=== PATIENT | male | born 1950 | race Caucasian/White ===

== ENCOUNTER 2023-09-20 22:28 | Inpatient (IN) | payer MEDICARE, MEDICAID, SELFPAY ==
[2023-09-20] VITALS (15 sets, daily range): BP systolic 134–164; BP diastolic 65–94; PULSE 62–116; RESP 8–44; TEMP 36.4; O2SAT 93–98
--- NOTE | ~2023-09-20 | CT_ITS ---
Clinical Indication: Dyspnea CT Scan of the Chest with Contrast: Technique: Contiguous sections were acquired throughout the chest after intravenous administration of 100 cc of Omnipaque 350. Dose reduction technique was used on this scan by utilizing automated expos ure control and iterative reconstruction technique. The dose-length product (DLP) was 903.80 mGy-cm. Findings: There is no evidence of any significant mediastinal, hilar or axillary lymphadenopathy. There is no f illing defect in the pulmonary arterial tree to suggest pulmonary embolus. There is no evidence of ao rtic dissection or aneurysm. No pericardial effusion. Moderate bilateral pleural effusions are present. There are numerous calcified granulomas. Images through the upper abdomen reveal no abnormalities. Impression: No evidence of pulmonary embolus, aortic dissection, or aortic aneurysm. Moderate bilateral pleural effusions. Reviewed, dictated and finalized at [facility]. [employer] Impression: No evidence of pulmonary embolus, aortic dissection, or aortic aneurysm. Moderate bilateral pleural effusions.
--- NOTE | ~2023-09-20 | XR_ITS ---
Portable chest x-ray Comparison: None Clinical History: Shortness of breath Findings: There is central congestive change and suspected minimal pulmonary edema. Numerous calcifi ed granulomas are present. Cardiomediastinal silhouette is stable. Vascular stent present in the lef t axillary to subclavian region. Bones and soft tissues are otherwise unremarkable. Impression: Probable central congestive change and minimal pulmonary edema. Numerous calcified granulomas. Reviewed, dictated and finalized at location . ER MEAT Impression: Probable central congestive change and minimal pulmonary edema. Numerous calcified granulomas.
--- NOTE | ~2023-09-20 | XR_ITS ---
Portable chest x-ray Comparison: 09/20/2023 Clinical History: Shortness of breath Findings: There is central congestive change. Numerous small calcified granulomas are present. Card iomediastinal silhouette is stable. Bones and soft tissues are unremarkable. Impression: Central congestive change. Prior granulomatous disease. Reviewed, dictated and finalized at [facility]. [employer] Impression: Central congestive change. Prior granulomatous disease.
--- NOTE | 2023-09-20 22:41 | ECG_ITS ---
Measurements Intervals [place] Rate: 63 P: 34 RI: 191 QRS: -4 QRSD: 162 T: 32 QT: 466 QTc: 477 Interpretive Statements SINUS RHYTHM VENTRICULAR BIGEMINY RIGHT BUNDLE BRANCH BLOCK ABNORMAL ECG NO PREVIOUS ECG AVAILABLE FOR COMPARISON Electronically Signed On 09-21-2023 6:05:11 MATH COACH by Imer Scanlon D.O.
--- NOTE | 2023-09-20 23:42 | ED.GENADULT ---
HPI - General Adult General Chief complaint: Shortness of Breath/Dyspnea Stated complaint: sob, abnormal cxr Time Seen by Provider: 09/20/23 22:42 History of Present Illness HPI narrative: This is a 73-year-old male with history of end-stage renal disease on HD mwf, hypertension, diabetes, presenting for difficulty breathing. Patient says he has had shortness breath for 2-3 days. He has had a productive cough. It got significantly worse today and his senior living called EMS. Patient denies fever chills chest pain abdominal pain or urinary symptoms. He has had diarrhea for 2-3 months. Last dialysis was Thursday. Related Data Allergies Allergy/AdvReac Type Severity Reaction Status Date / Time azithromycin Allergy Unknown Verified 09/20/23 23:45 Penicillins Allergy Unknown Verified 09/20/23 23:45 [facility] Past Medical History Medical History (Updated 09/21/23 @ 06:38 by Sergo Carney MD) Diabetes ESRD (end stage renal disease) Hypertension Exam Narrative: APPEARANCE: No apparent distress. Head: atraumatic. EYES: EOMI, NOSE: Atraumatic NECK: Trachea midline RESPIRATORY: Tachypneic, coarse breath sounds bilaterally CARDIOVASCULAR: RRR, left calf swelling ABDOMINAL: Non-distended, soft nontender MUSCULOSKELETAl: No obvious deformities NEURO: Alert. Moving 4/4 extremities SKIN:: Warm, dry. Normal color PSYCHIATRIC: Normal affect Course Vital Signs Vital signs: Vital Signs Temperature 97.6 F 09/20/23 22:27 Pulse Rate 62 09/20/23 22:27 Respiratory Rate 25 H 09/20/23 22:27 Blood Pressure 134/73 09/20/23 22:27 Pulse Oximetry 93 09/20/23 22:27 Oxygen Delivery Room Air 09/20/23 22:27 Temperature 97.6 F 09/20/23 22:27 Pulse Rate 75 09/21/23 03:33 Respiratory Rate 23 H 09/21/23 02:43 Blood Pressure 131/62 09/21/23 04:46 Pulse Oximetry 100 09/21/23 02:43 Oxygen Delivery Nasal Cannula 09/21/23 01:30 Oxygen Flow Rate 4 09/21/23 01:30 Medical Decision Making MDM Narrative Medical decision making narrative: -Course: 73-year-old male with multiple comorbidities presenting with 3 days of shortness of breath/productive cough. Full sepsis workup ordered. CT was significantly delayed overnight as stat read did not return any scans. Patient started on ceftriaxone and Zithromax to cover for pneumonia. When they CT finally resulted showed no evidence of PE but showed pulmonary edema and diffuse granulomas. Potassium elevated. Given medical treatment. Patient is likely fluid overloaded and will need dialysis. Patient be admitted to the hospital for further management -DDX includes but is not limited to: Pneumonia, fluid overload,, sepsis, viral syndrome, hyperkalemia, CHF, PE -Co-morbidities complicating care: Hypertension, diabetes, end-stage renal disease requiring hemodialysis -Social determinants of health: assisted resident -External Chart Review: [place] paperwork -Independent interpretation of studies: Hemoglobin 10.1. No baseline compared D-dimer elevated 1.31. CT showed no evidence of pulmonary embolism. Potassium 5.9, creatinine 11.2 and BUN of 73. Potassium managed medically. Patient will require dialysis. Urine not indicative infection. Viral swabs negative Independent EKG interpretation: Rhythm bigeminy Rate [63], [place] -[normal], [place] -[normal], QRS right bundle-branch block], QTC [normal], T waves -[negative for concerning inversions], ST Segments - [Negative for concerning elevations] Final interpretations: Bigeminy with RBBB CT PE: No evidence of pulmonary embolus, aortic dissection, or aortic aneurysm. Moderate bilateral pleural effusions. Chest x-ray showed multiple granulomas and congestive changes. -Discussion of Management/Consultants: Emery - Hospitalist -Interventions: Ceftriaxone, doxycycline, Lokelma, insulin, dextrose, bicarb, calcium -Shared decision making / Disposition:admitted. Vital Signs Vital Signs: Vital Signs Temp
[2023-09-20 23:46] LABS: Basophils Absolute Auto 0.1 K/mm3 (0.0-0.1); Eosinophils Absolute Auto 0.5 K/mm3 (0-0.3); Eosinophils Percent Auto 6.4 % (0-4.4); Hematocrit 32.4 % (42.0-52.0); Hemoglobin 10.1 g/dL (14.0-18.0); Immature Granulocyte Absolute 0.01 K/mm3 (0.00-0.031); Immature Granulocyte Percent A 0.1 % (0-0.5); Lymphocytes Absolute Auto 2.07 K/mm3 (0.9-3.2); Lymphocytes Percent Auto 28.8 % (18.3-44.2); Mean Corpuscular HGB Conc 31.2 g/dl (32-36); Mean Corpuscular Hemoglobin 29.9 pg (26-34); Mean Corpuscular Volume 95.9 fl (80-100); Mean Platelet Volume 11.4 fl (7.4-10.4); Monocytes Absolute Auto 0.7 K/mm3 (0.1-0.6); Monocytes Percent Auto 9.9 % (2.6-8.5); Neutrophils Absolute Auto 3.9 K/mm3 (1.3-6.7); Neutrophils Percent Auto 53.8 % (45.5-73.1); Platelet Count Result 188 k/mm3 (150-375); Red Blood Count 3.38 M/mm3 (4.6-6.20); White Blood Count 7.2 K/mm3 (4.5-10.0)
[2023-09-20 23:59] LABS: INR 1.1; Prothrombin Time 14.8 Seconds (11.1-14.7)
[2023-09-21] VITALS (46 sets, daily range): BP systolic 119–162; BP diastolic 50–89; PULSE 56–104; RESP 12–29; TEMP 36.3–37; O2SAT 91–100; BMI 39.2
[2023-09-21] LABS: Partial Thromboplastin Time 32.6 SECONDS (22.3-36.8)
[2023-09-21 00:04] LABS: D Dimer 1.31 ug/mL (<0.48)
[2023-09-21 00:07] LABS: NT Pro B Type Natriuretic Pept > 30000 pg/mL (19.9-100); Troponin I 0.024 ng/mL (0.000-0.034)
[2023-09-21 00:22] LABS: Influenza A QL RT-PCR Negative (Negative); Influenza B QL RT-PCR Negative (Negative); RSV RNA, RT-PCR Negative (Negative); SARS-CoV-2 RNA PCR Negative (Negative)
[2023-09-21] MEDS: DOXYCYCLINE 100 MG/NS 100 ML 100 MG/100 ML BAG IVPB ×2 (01:27→18:36)
--- NOTE | 2023-09-21 01:29 | PC.NURSE ---
while sleeping pt dropped to 82% on RA. with provider orders 4L nc was applied and pt O2 was 94%
[2023-09-21 01:31] LABS: Alanine Aminotransferase 11 U/L (6-50); Albumin Level 3.5 g/dL (3.5-5.1); Alkaline Phosphatase 71 U/L (38-126); Anion Gap 13 mmol/L (8-16); Aspartate Amino Transferase 15 U/L (17-59); Bilirubin,Total 0.6 mg/dL (0.2-1.3); Blood Urea Nitrogen 73 mg/dL (9-20); Calcium 9.2 mg/dL (8.4-10.2); Carbon Dioxide 29 mmol/L (22-30); Chloride 99 mmol/L (98-107); Estimated CRCL calculation 8 ml/min; Estimated Glomerular Filt Rate 4; Glucose 87 mg/dL (65-110); Magnesium 2.8 mg/dL (1.6-2.3); Phosphorus 6.8 mg/dL (2.5-4.5); Potassium 5.9 mmol/L (3.4-5.0); Sodium 141 mmol/L (137-145)
[2023-09-21 01:42] LABS: Appearance Urine Clear (Clear); Bilirubin Urine Negative (Negative); Blood Urine 2+ (Negative); Color Urine Yellow (Yellow); Glucose Urine UA Trace mg/dL (Negative); Ketones Urine Negative (Negative); Leukocyte Esterase Ur Negative LEU/UL (Negative); Nitrate Urine Negative (Negative); Protein Urine 2+ mg/dL (Negative); Specific Grav Ur 1.009 (1.001-1.035); Urobilinogen Urine 0.2 mg/dL (<2.0); pH Urine 8.5 (5.0-9.0)
[2023-09-21 01:43] LABS: Add Urine Microscopic? YES
[2023-09-21 01:46] LABS: Troponin I 0.021 ng/mL (0.000-0.034)
[2023-09-21] MEDS: DEXTROSE 50% 25 GM/50 ML SYRINGE IV PUSH (01:47)
[2023-09-21] MEDS: INSULIN HUMAN REGULAR (*BKC) 100 UNITS/ML 10 UNITS IV PUSH (01:47)
[2023-09-21] MEDS: CALCIUM GLUCONATE 1,000 MG/10 ML VIAL 1000 MG IV PUSH (01:47)
[2023-09-21] MEDS: SODIUM BICARBONATE 8.4% 50 MEQ/50 ML SYRINGE IV PUSH (01:47)
[2023-09-21] MEDS: SODIUM ZIRCONIUM CYCLOSILICATE 10 GM POWD.PACK PO (01:47)
--- NOTE | 2023-09-21 03:05 | PC.NURSE ---
this rn assumed care of patient. this rn took patient report from nolvia putnam.
--- NOTE | 2023-09-21 03:06 | PC.NURSE ---
care and report given to VIKTORIYA Rice. all questions answered.
[2023-09-21 07:25] LABS: Procalcitonin 0.2 ng/mL
--- NOTE | 2023-09-21 08:38 | PM.IMHP ---
H&P: HPI History of Present Illness Date/Time: 09/21/23 08:38 Chief Complaint: Difficulty breathing Narrative: [age]-year-old old male with history of end-stage renal disease on hemodialysis Thursday hypertension diabetes presented with difficulty breathing for the past 2-3 days. Associated productive cough. EMS was called to his longterm. No fever chills chest pain abdominal pain or urinary symptoms. He missed his dialysis appointment this Thursday. he reports diarrhea for past 2-3 months. On ED evaluation his vitals were stable laboratory evaluation showed normal WBC hemoglobin 10.1 indicating chronic anemia potassium was 5.9 creatinine of 11.2 blood sugar was 87 PT and a PTT was within normal limit D-dimer came back elevated at 1.31 lactic acid was normal. BNP was more than 30,000 troponin was negative at 0.024 SARs COVID RSV influenza a and B were negative. UA was negative. CT showed no evidence of PE but showed moderate bilateral pleural effusions. Chest x-ray showed multiple granulomas and congestive changes.. EKG with bigeminy acute ST-T changes right bundle-branch block. Patient was started on ceftriaxone duct doxycycline. Lokelma was given along with insulin dextrose bicarb and calcium for hyperkalemia. Nephrology will be consulted for inpatient hemodialysis. He is admitted in this setting for further treatment Review of Systems Review of Systems: - CONSTITUTIONAL: Denies weight loss, fever and chills. - HEENT: Denies changes in vision and hearing - RESPIRATORY: See HPI - CV: Denies palpitations and CP. - GI: Denies abdominal pain, nausea, vomiting and diarrhea. - : Denies dysuria and urinary frequency. - MSK: Denies myalgia and joint pain. - SKIN: Denies rash and pruritus. - NEUROLOGICAL: Denies headache and syncope. - PSYCHIATRIC: Denies recent changes in mood. Denies anxiety and depression. [facility] Past Medical History Medical History (Updated 09/21/23 @ 06:38 by Sergo Carney MD) Diabetes ESRD (end stage renal disease) Hypertension Meds Home Medications and Allergies Allergies Allergy/AdvReac Type Severity Reaction Status Date / Time azithromycin Allergy Unknown Verified 09/20/23 23:45 Penicillins Allergy Unknown Verified 09/20/23 23:45 Vital Signs Vital Signs - 24 hr 09/20/23 22:27 09/20/23 22:27 09/20/23 22:40 Temperature 97.6 F Pulse Rate 62 64 Respiratory Rate 25 H Blood Pressure 134/73 Pulse Oximetry 93 95 Oxygen Delivery Room Air Room Air Oxygen Flow Rate 09/20/23 22:34 09/20/23 22:35 09/20/23 22:45 Temperature Pulse Rate 71 69 66 Respiratory Rate 20 16 31 H Blood Pressure 134/73 Pulse Oximetry 94 94 Oxygen Delivery Oxygen Flow Rate 09/20/23 22:46 09/20/23 23:00 09/20/23 23:01 Temperature Pulse Rate 66 66 62 Respiratory Rate 25 H 17 16 Blood Pressure 143/80 H 164/89 H Pulse Oximetry 96 Oxygen Delivery Oxygen Flow Rate 09/20/23 23:15 09/20/23 23:18 09/20/23 23:30 Temperature Pulse Rate 67 116 H 64 Respiratory Rate 27 H 8 L 44 H Blood Pressure 147/94 H Pulse Oximetry 96 Oxygen Delivery Oxygen Flow Rate 09/20/23 23:38 09/20/23 23:45 09/20/23 23:47 Temperature Pulse Rate 63 63 64 Respiratory Rate 14 24 H 25 H Blood Pressure 159/67 H 153/65 H Pulse Oximetry 93 97 Oxygen Delivery Oxygen Flow Rate 09/21/23 01:30 09/20/23 23:48 09/21/23 00:00 Temperature Pulse Rate 63 Respiratory Rate 17 29 H Blood Pressure Pulse Oximetry 94 98 92 Oxygen Delivery Nasal Cannula Oxygen Flow Rate 4 09/21/23 00:14 09/21/23 00:15 09/21/23 00:17 Temperature Pulse Rate 62 64 65 Respiratory Rate 21 H 28 H 27 H Blood Pressure 162/68 H 147/69 H Pulse Oximetry 94 91 96 Oxygen Delivery Oxygen Flow Rate 09/21/23 00:30 09/21/23 00:31 09/21/23 01:07 Temperature Pulse Rate 66 104 H 64 Respiratory Rate 23 H 23 H 18 Blood Pressure
[2023-09-21 09:08] LABS: Anion Gap 12 mmol/L (8-16); Blood Urea Nitrogen 76 mg/dL (9-20); Calcium 9.6 mg/dL (8.4-10.2); Carbon Dioxide 29 mmol/L (22-30); Chloride 99 mmol/L (98-107); Estimated CRCL calculation 8 ml/min; Estimated Glomerular Filt Rate 4; Glucose 71 mg/dL (65-110); Potassium 6.1 mmol/L (3.4-5.0); Sodium 140 mmol/L (137-145)
[2023-09-21] MEDS: HEPARIN SODIUM 5,000 UNITS/ML VIAL 5000 UNITS SUB-Q ×2 (10:12→20:42)
[2023-09-21 11:05] LABS: Hepatitis B Surface Antigen Negative (Negative)
[2023-09-21 11:17] LABS: Hemoglobin A1C 4.9 % (<5.7)
[2023-09-21 11:35] LABS: Hepatitis B Surface Anti Res Positive
--- NOTE | 2023-09-21 14:02 | PC.NURSE ---
Dialysis called stating they are ready for patient.
--- NOTE | 2023-09-21 14:20 | PC.NURSE ---
Pt taken to dialysis
--- NOTE | 2023-09-21 16:23 | PM.CNNEP ---
Assessment and Plan Assessment and plan (1) End stage renal disease: Code(s): N18.6 - End stage renal disease Status: Chronic Assessment and Plan: HD today continue Thu/Thu/Thursday dialysis schedule follow electrolytes, volume status, and clearance (2) Hyperkalemia: Code(s): E87.5 - Hyperkalemia Status: Acute Assessment and Plan: presumably precipitated by missed dialysis treatment last week s/p medical management further correction with dialysis (3) Shortness of breath: Code(s): R06.02 - Shortness of breath Status: Acute Assessment and Plan: due to bronchitis with possible early pneumonia and fluid retention supplemental oxygen as needed on antibiotics follow culture data fluid removal with HD as tolerated (4) Fluid overload: Code(s): E87.70 - Fluid overload, unspecified Status: Acute Assessment and Plan: as noted by imaging studies on admission fluid removal/ultrafiltration with dialysis to compensate follow respiratory status (5) Hypertension: Code(s): I10 - Essential (primary) hypertension Status: Chronic Assessment and Plan: reasonable control at time resume home medications follow trend of hemodynamics (6) Diabetes: Code(s): E11.9 - Type 2 diabetes mellitus without complications Status: Chronic Assessment and Plan: follow accu-cheks glycemic control per hospitalists I will continue follow patient with you while he remains hospitalized make further recommendations as needed. Thank you for allowing me to participate in care of this patient. History of Present Illness Reason for Consult Consult date: 09/21/23 Reason for consult: end stage renal disease Chief Complaint Chief complaint: Fluid Overload History of Present Illness Narrative: The patient is a 73-year-old male with a past medical history as outlined below who presented to [facility] Emergency Room with complaints of shortness of breath. The patient has been currently residing in nursing facility for rehabilitation purposes. He reports that he has been having some difficulty with breathing for the past 2-3 days. His breathing difficulty these have been associated with productive cough as well. He denies any other subjective symptoms with regard to fevers, chills, chest pain, abdominal pain, or urinary symptoms. He does admit that he missed his dialysis treatment last Thursday so he has not had dialysis since last Thursday. Given his symptoms, EMS was called to his nurses in facility and he was subsequently transferred to [facility] Emergency Room for further assessment Workup and evaluation emergency room demonstrated the patient be hemodynamically stable. Routine blood test demonstrated normal white blood cell count anemia consistent with his known history of end-stage renal disease, and a chemistry panel with laboratory findings consistent with his known dialysis status. Of note was that his potassium was 5.9. His BNP was greater than 30,000 and his initial troponin was negative and he was found to be negative with regard to RSV, influenza, and COVID 19 testing his urinalysis was unremarkable but he did have a elevated D-dimer. He subsequently had a CTA of his chest which showed no evidence of a pulmonary embolism but moderate bilateral pleural effusions and findings consistent with congestive heart failure. His chest x-ray also demonstrated congestive heart failure changes in association with multiple granulomas. EKG was unremarkable for ischemic changes. He was given medical management for his hyperkalemia and after appropriate cultures were obtained, he was started on antibiotics on the assumption of early pneumonia/bronchitis. He was subsequently admitted to the hospital for further evaluation therapy Since his admission, his respiratory status has been relatively stable but his repeat
[2023-09-21 18:39] LABS: Glucose Point of Care 105 mg/dl (65-105)
[2023-09-21 20:59] LABS: Glucose Point of Care 135 mg/dl (65-105)
[2023-09-22] VITALS (10 sets, daily range): BP systolic 130–148; BP diastolic 57–73; PULSE 55–67; RESP 13–14; TEMP 36.3–36.5; O2SAT 90–95
[2023-09-22] MEDS: DOXYCYCLINE 100 MG/NS 100 ML 100 MG/100 ML BAG IVPB ×2 (05:34→18:22)
[2023-09-22 05:39] LABS: Basophils Absolute Auto 0.1 K/mm3 (0.0-0.1); Basophils Percent Auto 1.5 % (0.2-1.2); Eosinophils Absolute Auto 0.4 K/mm3 (0-0.3); Eosinophils Percent Auto 8.4 % (0-4.4); Hematocrit 30.5 % (42.0-52.0); Hemoglobin 9.1 g/dL (14.0-18.0); Immature Granulocyte Absolute 0.01 K/mm3 (0.00-0.031); Immature Granulocyte Percent A 0.2 % (0-0.5); Lymphocytes Absolute Auto 1.35 K/mm3 (0.9-3.2); Lymphocytes Percent Auto 29.2 % (18.3-44.2); Mean Corpuscular HGB Conc 29.8 g/dl (32-36); Mean Corpuscular Volume 100.7 fl (80-100); Mean Platelet Volume 11.2 fl (7.4-10.4); Monocytes Absolute Auto 0.6 K/mm3 (0.1-0.6); Monocytes Percent Auto 12.1 % (2.6-8.5); Neutrophils Absolute Auto 2.2 K/mm3 (1.3-6.7); Neutrophils Percent Auto 48.6 % (45.5-73.1); Platelet Count Result 159 k/mm3 (150-375); Red Blood Count 3.03 M/mm3 (4.6-6.20); Red Cell Distribution Width 17.7 % (11.5-14.5); White Blood Count 4.6 K/mm3 (4.5-10.0)
[2023-09-22 06:22] LABS: Alanine Aminotransferase 10 U/L (6-50); Albumin Level 3.3 g/dL (3.5-5.1); Alkaline Phosphatase 68 U/L (38-126); Anion Gap 8 mmol/L (8-16); Aspartate Amino Transferase 15 U/L (17-59); Bilirubin,Total 0.4 mg/dL (0.2-1.3); Blood Urea Nitrogen 42 mg/dL (9-20); Calcium 9.3 mg/dL (8.4-10.2); Carbon Dioxide 30 mmol/L (22-30); Chloride 99 mmol/L (98-107); Estimated CRCL calculation 11 ml/min; Estimated Glomerular Filt Rate 7; Glucose 83 mg/dL (65-110); Magnesium 2.5 mg/dL (1.6-2.3); Potassium 5.1 mmol/L (3.4-5.0); Sodium 137 mmol/L (137-145)
[2023-09-22 06:45] LABS: Hypochromasia 2+ (NORMAL); Ovalocytes 2+ (NORMAL); Platelet Estimate Adequate (Adequate); Schistocytes None Seen (NORMAL)
[2023-09-22 08:20] LABS: Glucose Point of Care 88 mg/dl (65-105)
[2023-09-22] MEDS: HEPARIN SODIUM 5,000 UNITS/ML VIAL 5000 UNITS SUB-Q ×2 (09:21→21:33)
--- NOTE | 2023-09-22 10:45 | PM.PNNEP ---
Progress Note: A&P Assessment and Plan (1) End stage renal disease: Code(s): N18.6 - End stage renal disease Status: Chronic Assessment and Plan: HD tomorrow continue Thu/Thu/Thursday dialysis schedule follow electrolytes, volume status, and clearance (2) Hyperkalemia: Code(s): E87.5 - Hyperkalemia Status: Acute Assessment and Plan: resolved presumably precipitated by missed dialysis treatment last week s/p medical management further correction achieved with dialysis (3) Shortness of breath: Code(s): R06.02 - Shortness of breath Status: Acute Assessment and Plan: due to bronchitis with possible early pneumonia and fluid retention supplemental oxygen as needed on antibiotics follow culture data fluid removal with HD as tolerated (4) Fluid overload: Code(s): E87.70 - Fluid overload, unspecified Status: Acute Assessment and Plan: as noted by imaging studies on admission fluid removal/ultrafiltration with dialysis to compensate follow respiratory status (5) Hypertension: Code(s): I10 - Essential (primary) hypertension Status: Chronic Assessment and Plan: reasonable control at time resume home medications follow trend of hemodynamics (6) Diabetes: Code(s): E11.9 - Type 2 diabetes mellitus without complications Status: Chronic Assessment and Plan: follow accu-cheks glycemic control per hospitalists Will continue to follow. Subjective Date/time seen: 09/22/23 10:45 Interval history: Follow-up for end stage renal disease on hemodialysis. Tolerated dialysis treatment yesterday afternoon without any issues or problems; still with some mild shortness of breath but has significantly improved since admission; no apparent distress noted; no other issues/events overnight or earlier this morning. Exam Narrative: General: elderly but WD/WN male in NAD Heart: normal S1 and S2; no rub Lungs: coarse breath sounds Abdomen: soft, nontender, nondistended, positive bowel sounds Extremities: no cyanosis or clubbing; no edema Skin: warm and dry Objective Data Vital Signs Vital Signs: Vital Signs Temp Pulse Resp BP Pulse Ox O2 Del Method O2 Flow Rate 09/22/23 10:00 61 09/22/23 08:00 67 09/22/23 09:21 95 Nasal Cannula 2 09/22/23 04:00 64 09/22/23 05:24 97.3 F L 65 13 130/57 L 90 09/22/23 00:00 55 L 09/21/23 20:00 65 09/21/23 21:22 98.0 F 72 12 137/64 91 Intake/Output Intake/Output: Intake & Output 09/19/23 09/20/23 09/21/23 09/22/23 23:59 23:59 23:59 23:59 Intake Total 300 1450 Output Total 3650 Balance -3350 1450 Meds/Results Medications: Active Medications Generic Name Dose Route Start Last Admin Trade Name [place] PRN Reason Stop Dose Admin Acetaminophen 650 mg 09/22/23 14:10 09/22/23 14:35 Acetaminophen 325 Mg Tablet PO 650 mg Q4H PRN Administration mild pain or fever Dextrose 12.5 gm 09/21/23 08:43 Dextrose 50% 25 Gm/50 Ml Syringe IV PUSH PRN PRN Hypoglycemia Protocol Ergocalciferol 50,000 units 09/27/23 09:00 Ergocalciferol 50,000 Units Capsule PO [place]@0900 TARA Glucagon 1 mg 09/21/23 08:43 Glucagon For Inj 1 Mg Vial IM PRN PRN Hypoglycemia Protocol Glucose 15 gm 09/21/23 08:43 Glucose Oral Gel 15 Gm Of Glucse In 37.5 Gm Tube PO PRN PRN Hypoglycemia Protocol Guaifenesin/Dextromethorphan 10 ml 09/22/23 14:03 09/22/23 14:36 Guaifenesin/Dextromethorphan 10 Ml Udc PO 10 ml Q6-8H PRN Administration Cough Heparin Sodium (Porcine) 5,000 units 09/21/23 09:00 09/22/23 09:21 Heparin Sodium 5,000 Units/Ml Vial SUB-Q 5,000 units Q12HR TARA Administration Ceftriaxone Sodium 1 gm in 50 mls @ 100 mls/hr 09/21/23 21:00 09/21/23 21:11 Rocephin 1 Gm/Ns 50
--- NOTE | 2023-09-22 10:45 | P.PNNP_ITS ---
Progress Note: A&P Assessment and Plan (1) End stage renal disease: Code(s): N18.6 - End stage renal disease Status: Chronic Assessment and Plan: * HD tomorrow * continue Thu/Thu/Thursday dialysis schedule * follow electrolytes, volume status, and clearance (2) Hyperkalemia: Code(s): E87.5 - Hyperkalemia Status: Acute Assessment and Plan: * resolved * presumably precipitated by missed dialysis treatment last week * s/p medical management * further correction achieved with dialysis (3) Shortness of breath: Code(s): R06.02 - Shortness of breath Status: Acute Assessment and Plan: * due to bronchitis with possible early pneumonia and fluid retention * supplemental oxygen as needed * on antibiotics * follow culture data * fluid removal with HD as tolerated (4) Fluid overload: Code(s): E87.70 - Fluid overload, unspecified Status: Acute Assessment and Plan: * as noted by imaging studies on admission * fluid removal/ultrafiltration with dialysis to compensate * follow respiratory status (5) Hypertension: Code(s): I10 - Essential (primary) hypertension Status: Chronic Assessment and Plan: * reasonable control at time * resume home medications * follow trend of hemodynamics (6) Diabetes: Code(s): E11.9 - Type 2 diabetes mellitus without complications Status: Chronic Assessment and Plan: * follow accu-cheks * glycemic control per hospitalists Will continue to follow. Subjective Date/time seen: 09/22/23 10:45 Interval history: Follow-up for end stage renal disease on hemodialysis. Tolerated dialysis treatment yesterday afternoon without any issues or problems; still with some mild shortness of breath but has significantly improved since admission; no apparent distress noted; no other issues/events overnight or earlier this morning. Exam Narrative: General: elderly but WD/WN male in NAD Heart: normal S1 and S2; no rub Lungs: coarse breath sounds Abdomen: soft, nontender, nondistended, positive bowel sounds Extremities: no cyanosis or clubbing; no edema Skin: warm and dry Objective Data Vital Signs Vital Signs: Vital Signs Temp Pulse Resp BP Pulse Ox O2 Del Method O2 Flow Rate 09/22/23 10:00 61 09/22/23 08:00 67 09/22/23 09:21 95 Nasal Cannula 2 09/22/23 04:00 64 09/22/23 05:24 97.3 F L 65 13 130/57 L 90 09/22/23 00:00 55 L 09/21/23 20:00 65 09/21/23 21:22 98.0 F 72 12 137/64 91 Intake/Output Intake/Output: Intake & Output 09/19/23 09/20/23 09/21/23 09/22/23 23:59 23:59 23:59 23:59 Intake Total 300 1450 Output Total 3650 Balance -3350 1450 Meds/Results Medications: Active Medications Generic Name Dose Route Start Last Admin Trade Name Freq PRN Reason Stop Dose Admin Acetaminophen 650 mg 09/22/23 14:10 09/22/23 14:35 Acetaminophen 325 Mg Tablet PO 650 mg Q4H PRN Administration mild pain or fever Dextrose 12.5 gm 09/21/23 08:43 Dextrose 50% 25 Gm/50 Ml Syringe
[2023-09-22 12:14] LABS: Glucose Point of Care 162 mg/dl (65-105)
--- NOTE | 2023-09-22 13:43 | PM.IMPN ---
Progress Note: A&P Assessment and Plan (1) Fluid overload: Code(s): E87.70 - Fluid overload, unspecified Status: Acute (2) Respiratory failure: Code(s): J96.90 - Respiratory failure, unspecified, unspecified whether with hypoxia or hypercapnia Status: Acute (3) Hyperkalemia: Code(s): E87.5 - Hyperkalemia Status: Acute (4) ESRD (end stage renal disease): Code(s): N18.6 - End stage renal disease Status: Acute (5) Diabetes: Code(s): E11.9 - Type 2 diabetes mellitus without complications Status: Acute (6) Hypertension: Code(s): I10 - Essential (primary) hypertension Status: Acute Plan 73-year-old old male with history of end-stage renal disease on hemodialysis Thursday hypertension diabetes presented with difficulty breathing for the past 2-3 days. Associated productive cough. EMS was called to his [facility]. No fever chills chest pain abdominal pain or urinary symptoms. He missed his dialysis appointment on Thursday. He has been having diarrhea for past 2-3 months. On ED evaluation his vitals were stable laboratory evaluation showed normal WBC hemoglobin 10.1 indicating chronic anemia potassium was 5.9 creatinine of 11.2 blood sugar was 87 PT and a PTT was within normal limit D-dimer came back elevated at 1.31 lactic acid was normal. BNP was more than 30,000 troponin was negative at 0.024 SARs COVID RSV influenza a and B were negative. UA was negative. CT showed no evidence of PE but showed moderate bilateral pleural effusions. Chest x-ray showed multiple granulomas and congestive changes.. EKG with bigeminy acute ST-T changes right bundle-branch block. Patient was started on ceftriaxone and doxycycline for possible pneumonia. Lokelma was given along with insulin dextrose bicarb and calcium for hyperkalemia. Nephrology will be consulted for inpatient hemodialysis. Most likely presentation fluid overload with hypoxic respiratory failure. DVT prophylaxis heparin. received HD 09/21/2023. further dialysis per nephrology. continue antibiotics. Code status full code. PT/OT. Subjective Date/time seen: 09/22/23 13:43 Interval history: feels ok. still a bit sob. reports some cough, no fever, chills. Review of Systems Review of Systems: All systems reviewed & are unremarkable except as noted in HPI and below Exam Narrative: APPEARANCE: No apparent distress. Head: atraumatic. EYES:? EOMI, NOSE: Atraumatic NECK: Trachea midline RESPIRATORY:? coarse breath sounds bilaterally CARDIOVASCULAR: RRR, left calf swelling ABDOMINAL: Non-distended, soft nontender MUSCULOSKELETAl: No obvious deformities NEURO: Alert. Moving 4/4 extremities SKIN:: Warm, dry. Normal color PSYCHIATRIC: Normal affect Objective Data Vital Signs Vital Signs: Vital Signs - 24 hr 09/21/23 14:15 09/21/23 14:25 09/21/23 14:15 Temperature 97.5 F L Pulse Rate 64 65 Respiratory Rate 16 Blood Pressure 149/81 H 162/83 H Pulse Oximetry 100 Oxygen Flow Rate 2 09/21/23 14:45 09/21/23 15:00 09/21/23 15:15 Temperature Pulse Rate 73 61 64 Respiratory Rate Blood Pressure 142/76 H 141/74 H 133/60 Pulse Oximetry Oxygen Flow Rate 09/21/23 15:30 09/21/23 15:45 09/21/23 16:00 Temperature Pulse Rate 62 67 65 Respiratory Rate Blood Pressure 123/50 L 133/63 135/65 Pulse Oximetry Oxygen Flow Rate 09/21/23 16:15 09/21/23 16:30 09/21/23 16:45 Temperature Pulse Rate 58 L 57 L 62 Respiratory Rate Blood Pressure 125/68 119/62 129/65 Pulse Oximetry Oxygen Flow Rate 09/21/23 17:00 09/21/23 17:15 09/21/23 17:30 Temperature Pulse Rate 56 L 58 L 63 Respiratory Rate Blood Pressure 132/63 124/62 157/66 H Pulse Oximetry Oxygen Flow Rate 09/21/23 17:39 09/21/23 17:55 09/21/23 16:00 Temperature 97.4 F L Pulse Rate 64 62 56 L Respiratory Rate 16 Blood Pressure 142/74 H 147/67 H Pulse
[2023-09-22] MEDS: ACETAMINOPHEN 325 MG TABLET 650 MG PO (14:35)
[2023-09-22] MEDS: guaiFENesin/DEXTROMETHORPHAN 10 ML UDC PO (14:36)
--- NOTE | 2023-09-22 15:42 | PCCCNOTE ---
On 09/22/23, the student, [Sven Pavon], provided care and completed [facility] documentation on this patient. I have reviewed the student's documentation and agree with the findings.
[2023-09-22 16:44] LABS: Glucose Point of Care 90 mg/dl (65-105)
[2023-09-22] MEDS: SEVELAMER CARBONATE 800 MG TABLET 1600 MG PO (18:20)
--- NOTE | 2023-09-22 19:50 | ADMGEN ---
This patient, Justin Mustafa, was admitted to Medical Room 259-01. Patient/family oriented to hospital policies and general routines including ID bracelet, bed and alarms, visiting hours, pain management, procedures, bathroom and other care routines, personal items, smoking policy, room service/diet, and visiting hours. Information on how to activate the Rapid Response Team has been discussed. Patient/Family are encouraged to report perceived risks to care and to ask questions if they do not understand what they are told or what they should do.
[2023-09-22 20:37] LABS: Glucose Point of Care 96 mg/dl (65-105)
[2023-09-23] VITALS (22 sets, daily range): BP systolic 137–155; BP diastolic 62–72; PULSE 58–73; RESP 12–20; TEMP 35.2–37; O2SAT 90–97
[2023-09-23] MEDS: DOXYCYCLINE 100 MG/NS 100 ML 100 MG/100 ML BAG 75 MG IVPB (05:20)
[2023-09-23 06:12] LABS: Basophils Percent Auto 0.8 % (0.2-1.2); Eosinophils Absolute Auto 0.5 K/mm3 (0-0.3); Eosinophils Percent Auto 9.3 % (0-4.4); Hematocrit 30.3 % (42.0-52.0); Hemoglobin 9.1 g/dL (14.0-18.0); Immature Granulocyte Absolute 0.01 K/mm3 (0.00-0.031); Immature Granulocyte Percent A 0.2 % (0-0.5); Lymphocytes Absolute Auto 1.68 K/mm3 (0.9-3.2); Mean Corpuscular Hemoglobin 29.7 pg (26-34); Monocytes Absolute Auto 0.6 K/mm3 (0.1-0.6); Monocytes Percent Auto 11.7 % (2.6-8.5); Neutrophils Absolute Auto 2.2 K/mm3 (1.3-6.7); Platelet Count Result 158 k/mm3 (150-375); Red Blood Count 3.06 M/mm3 (4.6-6.20); Red Cell Distribution Width 17.4 % (11.5-14.5); White Blood Count 4.9 K/mm3 (4.5-10.0)
[2023-09-23 06:35] LABS: Alanine Aminotransferase 10 U/L (6-50); Albumin Level 3.2 g/dL (3.5-5.1); Alkaline Phosphatase 64 U/L (38-126); Anion Gap 10 mmol/L (8-16); Aspartate Amino Transferase 15 U/L (17-59); Bilirubin,Total 0.4 mg/dL (0.2-1.3); Blood Urea Nitrogen 51 mg/dL (9-20); Calcium 8.9 mg/dL (8.4-10.2); Carbon Dioxide 31 mmol/L (22-30); Chloride 99 mmol/L (98-107); Estimated CRCL calculation 9 ml/min; Estimated Glomerular Filt Rate 6; Glucose 78 mg/dL (65-110); Magnesium 2.4 mg/dL (1.6-2.3); Potassium 5.1 mmol/L (3.4-5.0); Sodium 140 mmol/L (137-145)
[2023-09-23 08:35] LABS: Glucose Point of Care 81 mg/dl (65-105)
[2023-09-23] MEDS: SEVELAMER CARBONATE 800 MG TABLET 1600 MG PO ×3 (08:52→17:21)
[2023-09-23] MEDS: MONTELUKAST SODIUM 10 MG TABLET PO (08:52)
[2023-09-23] MEDS: HEPARIN SODIUM 5,000 UNITS/ML VIAL 5000 UNITS SUB-Q ×2 (08:52→20:04)
--- NOTE | 2023-09-23 15:55 | PC.NURSE ---
Pt in dialysis unit with this RN at 1515 when pt began to complain of feeling weak. Pt requested off of dialysis at this time, and message to MD started. This RN asked pt to specify further on pt status, and pt stated Breath without further elaboration. Pulse oxygenation checked with a result of 96% on room air. This RN offered oxygen to assist with patient comfort, and pt refused at this time. This RN asked further if there was any further details or reasons for termination of dialysis. Pt stated he begins to feel this way before he cramps. This RN offered to work with pt on his fluid removal goal to avoid cramping if he wanted, and that he was able to remove a larger amount of fluid previously. Pt educated on missed dialysis treatments causing fluid buildup and further fluid removal tolerance. This RN started to educate pt on early takeoff risks for dialysis, such as repeat treatments, electrolyte imbalances, and more while readying supplies. Pt stated it is his choice to come off, and stated he will not run . Pt immediately became verbally aggressive and abusive, shouting at this RN with multiple expletives. Pt began to call this RN a nutjob and difficult , alongside thrashing in bed and slamming his fist against the bed repeatedly during this outburst. MD immediately messaged of pt status and treatment terminated. Pt status immediately improved, and has no acute distress or complaints of weakness, shortness of breath, or otherwise upon termination of treatment at 1519.
--- NOTE | 2023-09-23 16:00 | P.PNNP_ITS ---
Progress Note: A&P Assessment and Plan (1) End stage renal disease: Code(s): N18.6 - End stage renal disease Status: Chronic Assessment and Plan: * HD today * continue Thu/Thu/Thursday dialysis schedule * follow electrolytes, volume status, and clearance (2) Hyperkalemia: Code(s): E87.5 - Hyperkalemia Status: Acute Assessment and Plan: * resolved * presumably precipitated by missed dialysis treatment last week * s/p medical management * further correction achieved with dialysis (3) Shortness of breath: Code(s): R06.02 - Shortness of breath Status: Acute Assessment and Plan: * due to bronchitis with possible early pneumonia and fluid retention * supplemental oxygen as needed * on antibiotics * follow culture data * fluid removal with HD as tolerated (4) Fluid overload: Code(s): E87.70 - Fluid overload, unspecified Status: Acute Assessment and Plan: * as noted by imaging studies on admission * fluid removal/ultrafiltration with dialysis to compensate * follow respiratory status (5) Hypertension: Code(s): I10 - Essential (primary) hypertension Status: Chronic Assessment and Plan: * reasonable control at time * resume home medications * follow trend of hemodynamics (6) Diabetes: Code(s): E11.9 - Type 2 diabetes mellitus without complications Status: Chronic Assessment and Plan: * follow accu-cheks * glycemic control per hospitalists Will continue to follow. Subjective Date/time seen: 09/23/23 14:25 Interval history: Follow-up for end stage renal disease on hemodialysis. Tolerating hemodialysis treatment at the time of my visit (seen on HD at 2:15PM); breathing/respiratory status stable if not better at the time of visit; no issues/events overnight or earlier this morning; no apparent distress noted. Exam Narrative: General: elderly but WD/WN male in NAD Heart: normal S1 and S2; no rub Lungs: coarse breath sounds with a few crackles at the bases Abdomen: soft, nontender, nondistended, positive bowel sounds Extremities: no cyanosis or clubbing; no edema Skin: warm and dry Objective Data Vital Signs Vital Signs: Vital Signs Temp Pulse Resp BP Pulse Ox O2 Del Method O2 Flow Rate 09/23/23 14:15 64 155/63 H 09/23/23 14:00 64 151/72 H 09/23/23 13:48 63 142/63 H 09/23/23 15:19 62 144/69 H 09/23/23 12:01 62 09/23/23 08:03 73 09/23/23 13:44 98.2 F 60 20 137/62 09/23/23 11:48 Nasal Cannula 1 09/23/23 08:50 94 Nasal Cannula 1 09/23/23 09:05 94 Nasal Cannula 1 09/23/23 09:00 96 Nasal Cannula 2 09/23/23 05:20 97.9 F 67 12 141/62 H 97 09/23/23 04:00 58 L 09/23/23 00:00 60 09/22/23 20:00 59 L 09/22/23 21:25 97.7 F 63 13 148/72 H 94 09/22/23 20:00 94 Nasal Cannula 2 Intake/Output Intake/Output: Intake & Output 09/20/23 09/21/23 09/22/23 09/23/23 23:59 23:59 23:59 23:59 Intake Total 300 1850 2090 Output Total 3650 50 Balance -3350 1850 2040 Meds/Results Me
--- NOTE | 2023-09-23 16:00 | PM.PNNEP ---
Progress Note: A&P Assessment and Plan (1) End stage renal disease: Code(s): N18.6 - End stage renal disease Status: Chronic Assessment and Plan: HD today continue Thu/Thu/Thursday dialysis schedule follow electrolytes, volume status, and clearance (2) Hyperkalemia: Code(s): E87.5 - Hyperkalemia Status: Acute Assessment and Plan: resolved presumably precipitated by missed dialysis treatment last week s/p medical management further correction achieved with dialysis (3) Shortness of breath: Code(s): R06.02 - Shortness of breath Status: Acute Assessment and Plan: due to bronchitis with possible early pneumonia and fluid retention supplemental oxygen as needed on antibiotics follow culture data fluid removal with HD as tolerated (4) Fluid overload: Code(s): E87.70 - Fluid overload, unspecified Status: Acute Assessment and Plan: as noted by imaging studies on admission fluid removal/ultrafiltration with dialysis to compensate follow respiratory status (5) Hypertension: Code(s): I10 - Essential (primary) hypertension Status: Chronic Assessment and Plan: reasonable control at time resume home medications follow trend of hemodynamics (6) Diabetes: Code(s): E11.9 - Type 2 diabetes mellitus without complications Status: Chronic Assessment and Plan: follow accu-cheks glycemic control per hospitalists Will continue to follow. Subjective Date/time seen: 09/23/23 14:25 Interval history: Follow-up for end stage renal disease on hemodialysis. Tolerating hemodialysis treatment at the time of my visit (seen on HD at 2:15PM); breathing/respiratory status stable if not better at the time of visit; no issues/events overnight or earlier this morning; no apparent distress noted. Exam Narrative: General: elderly but WD/WN male in NAD Heart: normal S1 and S2; no rub Lungs: coarse breath sounds with a few crackles at the bases Abdomen: soft, nontender, nondistended, positive bowel sounds Extremities: no cyanosis or clubbing; no edema Skin: warm and dry Objective Data Vital Signs Vital Signs: Vital Signs Temp Pulse Resp BP Pulse Ox O2 Del Method O2 Flow Rate 09/23/23 14:15 64 155/63 H 09/23/23 14:00 64 151/72 H 09/23/23 13:48 63 142/63 H 09/23/23 15:19 62 144/69 H 09/23/23 12:01 62 09/23/23 08:03 73 09/23/23 13:44 98.2 F 60 20 137/62 09/23/23 11:48 Nasal Cannula 1 09/23/23 08:50 94 Nasal Cannula 1 09/23/23 09:05 94 Nasal Cannula 1 09/23/23 09:00 96 Nasal Cannula 2 09/23/23 05:20 97.9 F 67 12 141/62 H 97 09/23/23 04:00 58 L 09/23/23 00:00 60 09/22/23 20:00 59 L 09/22/23 21:25 97.7 F 63 13 148/72 H 94 09/22/23 20:00 94 Nasal Cannula 2 Intake/Output Intake/Output: Intake & Output 09/20/23 09/21/23 09/22/23 09/23/23 23:59 23:59 23:59 23:59 Intake Total 300 1850 2090 Output Total 3650 50 Balance -3350 1850 2040 Meds/Results Medications: Active Medications Generic Name Dose Route Start Last Admin Trade Name Freq PRN Reason Stop Dose Admin Acetaminophen 650 mg 09/22/23 14:10 09/22/23 14:35 Acetaminophen 325 Mg Tablet PO 650 mg Q4H PRN Administration mild pain or fever Dextrose 12.5 gm 09/21/23 08:43 Dextrose 50% 25 Gm/50 Ml Syringe IV PUSH PRN PRN Hypoglycemia Protocol Epoetin Robbie-epbx 10,000 units 09/23/23 20:00 Epoetin Robbie-Epbx 10,000 Units/Ml Vial IV PUSH 09/23/23 20:01 ONCE ONE Ergocalciferol 50,000 units 09/27/23 09:00 Ergocalciferol 50,000 Units Capsule PO Costa@0900 TARA Glucagon 1 mg 09/21/23 08:43 Glucagon For Inj 1 Mg Vial IM PRN PRN Hypoglycemia Protocol Glucose 15 gm 09/21/23 08:43 Glucose Oral Gel 15
[2023-09-23] MEDS: DOXYCYCLINE 100 MG/NS 100 ML 100 MG/100 ML BAG IVPB (17:21)
--- NOTE | 2023-09-23 19:37 | PM.IMPN ---
Progress Note: A&P Assessment and Plan (1) Fluid overload: Code(s): E87.70 - Fluid overload, unspecified Status: Acute Assessment and Plan: Patient presents with shortness of breath. Chest x-ray shows central congestive changes and pulmonary edema. Patient with elevated D-dimer. CTA shows no PE, aortic dissection or aortic aneurysm. He does have moderate bilateral pleural effusions. BNP >30K [place] patient had respiratory failure related to fluid overload. CXR today still showing some mild congestion Continue dialysis to control fluid status. (2) Respiratory failure: Code(s): J96.90 - Respiratory failure, unspecified, unspecified whether with hypoxia or hypercapnia Status: Acute Assessment and Plan: Patient presented with difficulty breathing. Imaging as mentioned above. No blood gas obtained. Patient was on up to 4 L of oxygen. Hemodialysis to control fluid status. Able to wean oxygen down to 1 L. Abx started for possible PNA. He does not wear oxygen at home. Continue to wean oxygen as tolerated. (3) Hyperkalemia: Code(s): E87.5 - Hyperkalemia Status: Acute Assessment and Plan: Patient hyperkalemia with potassium to 6.1. Potassium better with dialysis. Potassium still elevated today at 5.1. Dialysis is planned for later today (4) ESRD (end stage renal disease): Code(s): N18.6 - End stage renal disease Status: Acute (5) Diabetes: Code(s): E11.9 - Type 2 diabetes mellitus without complications Status: Acute Assessment and Plan: A1c 4.9. The patient's blood glucose was reviewed on 09/23 Glucose remains well controlled. Continue AccuCheks covering with sliding scale. Hypoglycemia protocol available as needed. Continue to monitor (6) Hypertension: Code(s): I10 - Essential (primary) hypertension Status: Acute Assessment and Plan: Patient's blood pressure was reviewed on 09/23 Blood pressure remains well controlled. Will continue current medications. Plan Anemia - probably chronic from his ESRD. Hgb stable in the 9-10 range DVT prophylaxis heparin. Code status full code. Subjective Date/time seen: 09/23/23 19:37 Interval history: 73yo male with DM, HTN and ESRD here for shortness of breath. Assuming care. Chart reviewed. Patient slept well last night. He slept flat. No nausea or vomiting. No chest pain or shortness of breath. Exam Narrative: AF 98.2 144/69 67 20 94% 1L Gen - NARD Chest -few basilar crackles. CV - RRR S1/S2; telemetry showing PVCs Abd - Soft, NT/ND, Positive BS Ext - No pedal edema. Thrown a bruit noted in the left upper extremity Psych - Nml mood and affect Skin - Warm and dry Objective Data Vital Signs Vital Signs: Vital Signs - 24 hr 09/22/23 20:00 09/22/23 21:25 09/22/23 20:00 Temperature 97.7 F Pulse Rate 63 59 L Respiratory Rate 13 Blood Pressure 148/72 H Pulse Oximetry 94 94 Oxygen Delivery Nasal Cannula Oxygen Flow Rate 2 09/23/23 00:00 09/23/23 04:00 09/23/23 05:20 Temperature 97.9 F Pulse Rate 60 58 L 67 Respiratory Rate 12 Blood Pressure 141/62 H Pulse Oximetry 97 Oxygen Delivery Oxygen Flow Rate 09/23/23 09:00 09/23/23 09:05 09/23/23 08:50 Temperature Pulse Rate Respiratory Rate Blood Pressure Pulse Oximetry 96 94 94 Oxygen Delivery Nasal Cannula Nasal Cannula Nasal Cannula Oxygen Flow Rate 2 1 1 09/23/23 11:48 09/23/23 13:44 09/23/23 08:03 Temperature 98.2 F Pulse Rate 60 73 Respiratory Rate 20 Blood Pressure 137/62 Pulse Oximetry Oxygen Delivery Nasal Cannula Oxygen Flow Rate 1 09/23/23 12:01 09/23/23 15:19 09/23/23 13:48 Temperature Pulse Rate 62 62 63 Respiratory Rate Blood Pressure 144/69 H 142/63 H Pulse Oximetry Oxygen Delivery Oxygen Flow Rate 09/23/23 14:00 09/23/23 14:15 09/23/23 14:30 [place]
[2023-09-24] VITALS: PULSE 68
[2023-09-24 04:00] VITALS: PULSE 67
[2023-09-24 05:02] VITALS: BP 141/68; PULSE 70; RESP 15; TEMP 36.7; O2SAT 93
--- NOTE | 2023-09-24 05:24 | PC.NURSE ---
pt refused to get this night time accucheck drawn, I explained to pt the importance of monitoring blood glucose levels, pt still refused to let us obtain accucheck and demanded that we bring him a soda and a snack. I again explained to him the importance of monitoring blood glucose levels and pt still refused.
[2023-09-24 06:24] LABS: Basophils Absolute Auto 0.1 K/mm3 (0.0-0.1); Eosinophils Absolute Auto 0.4 K/mm3 (0-0.3); Eosinophils Percent Auto 8.2 % (0-4.4); Hemoglobin 9.1 g/dL (14.0-18.0); Immature Granulocyte Absolute 0.01 K/mm3 (0.00-0.031); Immature Granulocyte Percent A 0.2 % (0-0.5); Lymphocytes Percent Auto 32.4 % (18.3-44.2); Mean Corpuscular HGB Conc 29.4 g/dl (32-36); Mean Corpuscular Hemoglobin 29.4 pg (26-34); Mean Corpuscular Volume 100.3 fl (80-100); Mean Platelet Volume 10.6 fl (7.4-10.4); Monocytes Absolute Auto 0.6 K/mm3 (0.1-0.6); Monocytes Percent Auto 11.4 % (2.6-8.5); Neutrophils Absolute Auto 2.5 K/mm3 (1.3-6.7); Neutrophils Percent Auto 46.8 % (45.5-73.1); Platelet Count Result 148 k/mm3 (150-375); Red Blood Count 3.09 M/mm3 (4.6-6.20); Red Cell Distribution Width 17.6 % (11.5-14.5); White Blood Count 5.3 K/mm3 (4.5-10.0)
[2023-09-24 06:40] LABS: Albumin Level 3.4 g/dL (3.5-5.1); Anion Gap 10 mmol/L (8-16); Blood Urea Nitrogen 46 mg/dL (9-20); Calcium 9.3 mg/dL (8.4-10.2); Carbon Dioxide 31 mmol/L (22-30); Chloride 101 mmol/L (98-107); Estimated CRCL calculation 9 ml/min; Estimated Glomerular Filt Rate 6; Glucose 80 mg/dL (65-110); Phosphorus 6.6 mg/dL (2.5-4.5); Potassium 4.9 mmol/L (3.4-5.0); Sodium 142 mmol/L (137-145)
[2023-09-24 07:28] LABS: Hypochromasia 1+ (NORMAL); Platelet Estimate Adequate (Adequate); Schistocytes None Seen (NORMAL)
[2023-09-24 08:00] VITALS: PULSE 74
[2023-09-24] MEDS: SEVELAMER CARBONATE 800 MG TABLET 1600 MG PO ×2 (09:32→12:25)
[2023-09-24] MEDS: DOXYCYCLINE HYCLATE 100 MG TABLET PO (09:32)
[2023-09-24] MEDS: HEPARIN SODIUM 5,000 UNITS/ML VIAL 5000 UNITS SUB-Q (09:32)
[2023-09-24] MEDS: MONTELUKAST SODIUM 10 MG TABLET PO (09:32)
[2023-09-24 12:00] VITALS: PULSE 64
--- NOTE | 2023-09-24 12:07 | P.PNNP_ITS ---
Progress Note: A&P Assessment and Plan (1) End stage renal disease: Code(s): N18.6 - End stage renal disease Status: Chronic Assessment and Plan: * HD tomorrow * continue Thu/Thu/Thursday dialysis schedule * follow electrolytes, volume status, and clearance (2) Hyperkalemia: Code(s): E87.5 - Hyperkalemia Status: Acute Assessment and Plan: * resolved * presumably precipitated by missed dialysis treatment last week * s/p medical management * further correction achieved with dialysis (3) Shortness of breath: Code(s): R06.02 - Shortness of breath Status: Acute Assessment and Plan: * due to bronchitis with possible early pneumonia and fluid retention * supplemental oxygen as needed * on antibiotics * follow culture data * fluid removal with HD as tolerated (4) Fluid overload: Code(s): E87.70 - Fluid overload, unspecified Status: Acute Assessment and Plan: * as noted by imaging studies on admission * fluid removal/ultrafiltration with dialysis to compensate * follow respiratory status (5) Hypertension: Code(s): I10 - Essential (primary) hypertension Status: Chronic Assessment and Plan: * reasonable control at time * resume home medications * follow trend of hemodynamics (6) Diabetes: Code(s): E11.9 - Type 2 diabetes mellitus without complications Status: Chronic Assessment and Plan: * follow accu-cheks * glycemic control per hospitalists Not opposed to discharge from renal perspective if otherwise medically stable... Will continue to follow. Subjective Date/time seen: 09/24/23 12:07 Interval history: Follow-up for end stage renal disease on hemodialysis. Only received a partial dialysis yesterday afternoon (about 1.5 hours) and the patient demanded to end his treatment early (and became agitated, uncooperative, and verbally abusive to dialysis nurse); breathing/respiratory status improved; no new issues or concerns voiced. Exam Narrative: General: elderly but WD/WN male in NAD Heart: normal S1 and S2; no rub Lungs: decreased at bases Abdomen: soft, nontender, nondistended, positive bowel sounds Extremities: no cyanosis or clubbing; no edema Skin: warm and intact Objective Data Vital Signs Vital Signs: Vital Signs Temp Pulse Resp BP Pulse Ox O2 Del Method 09/24/23 12:00 64 09/24/23 08:00 74 09/24/23 09:30 Room Air 09/24/23 04:00 67 09/24/23 05:02 98.1 F 70 15 141/68 H 93 09/24/23 00:00 68 09/23/23 20:00 71 09/23/23 22:00 97.9 F 68 17 141/69 H 95 09/23/23 21:00 97.9 F 68 18 141/68 H 90 09/23/23 20:17 97.9 F 68 18 141/68 H 90 09/23/23 19:57 Room Air 09/23/23 16:00 67 09/23/23 15:15 61 138/64 09/23/23 15:00 65 143/71 H 09/23/23 14:45 61 147/66 H 09/23/23 15:19 62 144/69 H Intake/Output Intake/Output: Intake & Output 09/21/23 09/22/23 09/23/23 09/24/23 23:59 23:59 23:59 23:59 Intake Total 300 1850 2190 480 Output Total 3650 50 600 Balance -3350 1850 2140 -120 Meds/Results
--- NOTE | 2023-09-24 12:07 | PM.PNNEP ---
Progress Note: A&P Assessment and Plan (1) End stage renal disease: Code(s): N18.6 - End stage renal disease Status: Chronic Assessment and Plan: HD tomorrow continue Thu/Thu/Thursday dialysis schedule follow electrolytes, volume status, and clearance (2) Hyperkalemia: Code(s): E87.5 - Hyperkalemia Status: Acute Assessment and Plan: resolved presumably precipitated by missed dialysis treatment last week s/p medical management further correction achieved with dialysis (3) Shortness of breath: Code(s): R06.02 - Shortness of breath Status: Acute Assessment and Plan: due to bronchitis with possible early pneumonia and fluid retention supplemental oxygen as needed on antibiotics follow culture data fluid removal with HD as tolerated (4) Fluid overload: Code(s): E87.70 - Fluid overload, unspecified Status: Acute Assessment and Plan: as noted by imaging studies on admission fluid removal/ultrafiltration with dialysis to compensate follow respiratory status (5) Hypertension: Code(s): I10 - Essential (primary) hypertension Status: Chronic Assessment and Plan: reasonable control at time resume home medications follow trend of hemodynamics (6) Diabetes: Code(s): E11.9 - Type 2 diabetes mellitus without complications Status: Chronic Assessment and Plan: follow accu-cheks glycemic control per hospitalists Not opposed to discharge from renal perspective if otherwise medically stable... Will continue to follow. Subjective Date/time seen: 09/24/23 12:07 Interval history: Follow-up for end stage renal disease on hemodialysis. Only received a partial dialysis yesterday afternoon (about 1.5 hours) and the patient demanded to end his treatment early (and became agitated, uncooperative, and verbally abusive to dialysis nurse); breathing/respiratory status improved; no new issues or concerns voiced. Exam Narrative: General: elderly but WD/WN male in NAD Heart: normal S1 and S2; no rub Lungs: decreased at bases Abdomen: soft, nontender, nondistended, positive bowel sounds Extremities: no cyanosis or clubbing; no edema Skin: warm and intact Objective Data Vital Signs Vital Signs: Vital Signs Temp Pulse Resp BP Pulse Ox O2 Del Method 09/24/23 12:00 64 09/24/23 08:00 74 09/24/23 09:30 Room Air 09/24/23 04:00 67 09/24/23 05:02 98.1 F 70 15 141/68 H 93 09/24/23 00:00 68 09/23/23 20:00 71 09/23/23 22:00 97.9 F 68 17 141/69 H 95 09/23/23 21:00 97.9 F 68 18 141/68 H 90 09/23/23 20:17 97.9 F 68 18 141/68 H 90 09/23/23 19:57 Room Air 09/23/23 16:00 67 09/23/23 15:15 61 138/64 09/23/23 15:00 65 143/71 H 09/23/23 14:45 61 147/66 H 09/23/23 15:19 62 144/69 H Intake/Output Intake/Output: Intake & Output 09/21/23 09/22/23 09/23/23 09/24/23 23:59 23:59 23:59 23:59 Intake Total 300 1850 2190 480 Output Total 3650 50 600 Balance -3350 1850 2140 -120 Meds/Results Medications: Active Medications Generic Name Dose Route Start Last Admin Trade Name Freq PRN Reason Stop Dose Admin Acetaminophen 650 mg 09/22/23 14:10 09/22/23 14:35 Acetaminophen 325 Mg Tablet PO 650 mg Q4H PRN Administration mild pain or fever Dextrose 12.5 gm 09/21/23 08:43 Dextrose 50% 25 Gm/50 Ml Syringe IV PUSH PRN PRN Hypoglycemia Protocol Doxycycline Hyclate 100 mg 09/24/23 09:00 09/24/23 09:32 Doxycycline Hyclate 100 Mg Tablet PO 09/27/23 21:01 100 mg Q12HR TARA Administration Ergocalciferol 50,000 units 09/27/23 09:00 Ergocalciferol 50,000 Units Capsule PO Costa@0900 TARA Glucagon 1 mg 09/21/23 08:43 Glucagon For Inj 1 Mg Vial IM PRN PRN Hypoglycemia Protocol Glucose 15 gm 09/21/23
--- NOTE | 2023-09-24 12:21 | PM.DS ---
DS: Admitting Diagnosis Discharge Date 09/24/23 Admitting Diagnosis Shortness of breath DS: Discharge Diagnosis Discharge Diagnosis (1) Fluid overload: Code(s): E87.70 - Fluid overload, unspecified Status: Acute (2) Respiratory failure: Code(s): J96.90 - Respiratory failure, unspecified, unspecified whether with hypoxia or hypercapnia Status: Acute (3) Hyperkalemia: Code(s): E87.5 - Hyperkalemia Status: Acute (4) ESRD (end stage renal disease): Code(s): N18.6 - End stage renal disease Status: Acute (5) Diabetes: Code(s): E11.9 - Type 2 diabetes mellitus without complications Status: Acute (6) Hypertension: Code(s): I10 - Essential (primary) hypertension Status: Acute DS: Summary Hospital Course Reason for hospitalization: 73yo male with DM, HTN and ESRD here for shortness of breath. Please see H&P for details. Hospital Course: Patient presents with shortness of breath and difficulty breathing. Chest x-ray shows central congestive changes and pulmonary edema. Patient with elevated D-dimer.? CTA shows no PE, aortic dissection or aortic aneurysm.? He did have moderate bilateral pleural effusions. BNP was >30K. Patient was on up to 4 L of oxygen. He does not wear oxygen at home. Panacea patient had respiratory failure related to fluid overload from poor fluid management by dialysis. Patient with hyperkalemia with potassium to 6.1 consistent with poor dialysis treatments.?Nephrology consulted and appreciate their input. Hemodialysis to control fluid status and hyperkalemia. Potassium better with dialysis. Hypoxia resolved with improved fluid status. Once he was feeling better, the patient was asking to come off his dialysis treatment early. Abx started for possible PNA but felt less likely given the improvement in symptoms with fluid removal. A1c 4.9. The patient's blood glucose was monitored with AccuCheks covering with sliding scale.? Hypoglycemia protocol was available as needed.?Patient was anemic probably chronic from his ESRD. Hgb stable in the 9-10 range. He was weaned to room air. He did well and was able to be [facility] on [facility]23. Status at Discharge Cognitive/behavioral status at discharge: stable Time Spent with Patient Time attestation: Total time spent providing and/or coordinating discharge services: 35 minutes Time spent: Greater than 30 minutes Exam Narrative: AF 98.1 141/68 70 15 93% ra Gen - NARD Chest - clear anteriorly and in the flanks CV - RRR S1/S2; telemetry showing PVCs Abd - Soft, NT/ND, Positive BS Ext - No pedal edema. thrill and bruit noted in the left upper extremity Psych - Nml mood and affect Skin - Warm and dry DS: Data Data Completed and Pending Labs on day of discharge: Labs from last 24 hours 09/24/23 06:13 WBC 5.3 RBC 3.09 L Hgb 9.1 L Hct 31.0 L MCV 100.3 H MCH 29.4 MCHC 29.4 L RDW 17.6 H Plt Count 148 L MPV 10.6 H Immature Gran % (Auto) 0.2 Neut % (Auto) 46.8 Lymph % (Auto) 32.4 Dunn % (Auto) 11.4 H Eos % (Auto) 8.2 H Baso % (Auto) 1.0 Lymph # (Auto) 1.70 Dunn # (Auto) 0.6 Eos # (Auto) 0.4 H Baso # (Auto) 0.1 Abs Immat Gran (auto) 0.01 Absolute Neuts (auto) 2.5 Absolute Nucleated RBC 0.0 Nucleated RBC % 0.0 Platelet Estimate Adequate Hypochromasia 1+ Schistocytes None seen Sodium 142 Potassium 4.9 Chloride 101 Carbon Dioxide 31 H Anion Gap 10 BUN 46 H Creatinine 9.00 H Estim Creat Clear Calc 9 Estimated GFR 6 L Glucose 80 Calcium 9.3 Phosphorus 6.6 H Albumin 3.4 L Preliminary micro results at discharge 09/20/23 23:56 Blood Culture - Preliminary Blood 09/20/23 23:56 Blood Culture - Preliminary Blood Discharge Plan Discharge Attending physician on discharge: Roman Yuan Consulting providers: Jhonny Montez Discharging Clinician: Roman Yuan
== END 2023-09-24 16:12 | DRG 640 ==
LOC: ANHED 09-21 06:38 → ANH3MEDSUR 09-21 10:07 → ANH2MED 09-21 16:04
PROVIDERS: Internal Medicine; Internal Medicine Nephrology; Admitting Provider Internal Medicine; Emergency Provider Emergency Medicine; Visit Provider Internal Medicine
DX: E87.79 Other fluid overload (principal); J96.00 Acute respiratory failure, unspecified whether with hypoxia or hypercapnia; N18.6 End stage renal disease; I12.0 Hypertensive chronic kidney disease with stage 5 chronic kidney disease or end stage renal disease; J90 Pleural effusion, not elsewhere classified; J40 Bronchitis, not specified as acute or chronic; E87.5 Hyperkalemia; E11.22 Type 2 diabetes mellitus with diabetic chronic kidney disease; I45.10 Unspecified right bundle-branch block; D63.1 Anemia in chronic kidney disease; Z99.2 Dependence on renal dialysis; Z20.822 Contact with and (suspected) exposure to COVID-19
CPT/HCPCS: 36415; 71045; 71275; 80048; 80053; 80069; 81001; 82948; 83036; 83605; 83735; 83880; 84100; 84145; 84484; 85025; 85380; 85610; 85730; 86140; 86706; 87040; 87340; 87637; 93005; 96365; 96366; 96367; 96375; 97161; 99285; A9270; G0257; G0378; J0612; J0696; J1644; J1815; J7030; Q9967

== ENCOUNTER 2023-10-01 14:28 | Emergency (ER) | payer MEDICARE, MEDICAID, SELFPAY ==
[2023-10-01 14:34] VITALS: BP 140/61; PULSE 63; RESP 18; TEMP 36.6; O2SAT 96
--- NOTE | 2023-10-01 14:42 | ECG_ITS ---
Measurements Intervals [place] Rate: 59 P: 40 [place]: 188 QRS: -38 QRSD: 177 T: 29 QT: 499 QTc: 497 Interpretive Statements SINUS BRADYCARDIA WITH OCCASIONAL VENTRICULAR PREMATURE COMPLEXES MARKED LEFT AXIS DEVIATION [QRS AXIS < -30] RIGHT BUNDLE BRANCH BLOCK [120+ ms QRS DURATION, UPRIGHT V1, 40+ ms S IN I/aVL/V4/V5/V6] COMPARED TO ECG 09/20/2023 22:48:43 SINUS BRADYCARDIA NOW PRESENT Electronically Signed On 10-01-2023 15:05:22 BOBBIN STRIPPER by Antonio Cramer M.D.
[2023-10-01 14:45] VITALS: RESP 18; O2SAT 98
--- NOTE | 2023-10-01 16:12 | ED.GENADULT ---
HPI - General Adult General Chief complaint: Recheck/Abnormal Lab/Rx <Travis Ochoa PA-C - Last Filed: 10/01/23 19:34> Stated complaint: K 6.3 <Travis Ochoa PA-C - Last Filed: 10/01/23 19:34> Time Seen by Provider: 10/01/23 16:01 <Travis Ochoa PA-C - Last Filed: 10/01/23 19:34> Source: patient <ZAIRE Faria Last Filed: 10/01/23 19:34> Mode of arrival: EMS <Travis Ochoa PA-C - Last Filed: 10/01/23 19:34> Limitations: no limitations <Travis Ochoa PA-C - Last Filed: 10/01/23 19:34> History of Present Illness HPI narrative: This is a 73-year-old male with PMH of ESRD, diabetes, HTN who presents to the ED via EMS from a [facility] with chief complaint of apparent elevated potassium levels. Patient has missed his last 3 dialysis appointments. When I ask him about this he states because he has been feeling better and thinks he does not need them. He reports the skin on his left arm looks much better since having quit the dialysis. 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 Patient reports his ex talked him to come into the hospital after discovering the elevated potassium. patient denies any symptoms. He states he feels completely fine. <Travis Ochoa PA-C - Last Filed: 10/01/23 19:34> Related Data Home medications: Home Medications Medication Instructions Recorded Confirmed acetaminophen 650 mg PO DAILY PRN Pain 09/21/23 09/21/23 cholecalciferol (vitamin D3) 1,250 1,250 mcg PO WEEKLY 09/21/23 09/21/23 mcg (50,000 unit) capsule clotrimazole-betamethasone 1 applic topical BID 09/21/23 09/21/23 dextromethorphan-guaifenesin 10 ml PO Q6-8H PRN Cough 09/21/23 09/21/23 diclofenac sodium 1 % topical gel See Rx Instructions .Route 09/21/23 09/21/23 (Arthritis Pain (diclofenac)) .COMPLEX PRN Pain loperamide 2 mg PO Q6-8H 09/21/23 09/21/23 montelukast 10 mg tablet 10 mg PO DAILY 09/21/23 09/21/23 sevelamer carbonate 1,600 mg PO TIDWM 09/21/23 09/21/23 <Travis Ochoa PA-C - Last Filed: 10/01/23 19:34> Allergies/adverse reactions: Allergies Allergy/AdvReac Type Severity Reaction Status Date / Time azithromycin Allergy Unknown Verified 09/20/23 23:45 Penicillins Allergy Unknown Verified 09/23/23 07:40 <ZAIRE Faria Last Filed: 10/01/23 19:34> Review of Systems Review of Systems: All systems as dictated in HPI <ZAIRE Faria Last Filed: 10/01/23 19:34> [facility] Past Medical History Medical History: Medical History (Updated 10/02/23 @ 00:04 by Fiona Miller) Diabetes ESRD (end stage renal disease) Hypertension <ZAIRE Faria Last Filed: 10/01/23 19:34> Social History Social History: Social History Smoking status: Never smoker Alcohol intake: never Substance use: never Do You Feel Safe in your Home?: Yes Lack of Transportation: No Lack of Food: Never True Current Housing: I Have Housing Concerned About Future Housing: No Difficulty Paying Gas/Electric Bills: No Difficulty Paying for Meds: No Currently Unemployed: No Education: Don't Know Difficulty w/ Childcare or Family Care: No Spiritual care concerns: No <ZAIRE Faria Last Filed: 10/01/23 19:34> Exam Narrative: GENERAL: Chronically ill-appearing HEAD: Normocephalic, atraumatic. EYES: PERRLA and EOMI. ENT: Nares clear, no rhinorrhea or epistaxis. Mucous membranes moist. Oropharynx without tonsillar hypertrophy exudate or other lesions. NECK: Supple. No adenopathy or masses. CHEST: No respiratory distress. Clear to auscultation. No wheezes rales or rhonchi HEART: Regular rate and rhythm. No murmur heard. Normal peripheral pulses. ABDOMEN: Soft, nontender, nondistended, normal active bowel sounds. MSK: Left upper arm fistula in place with bruit. Normal range of motion. No edema. SKIN: Warm, dry, no rash. NEURO
[2023-10-01 16:18] VITALS: BP 143/77; PULSE 60; RESP 18; O2SAT 100
[2023-10-01 16:24] LABS: Basophils Absolute Auto 0.1 K/mm3 (0.0-0.1); Basophils Percent Auto 1.2 % (0.2-1.2); Eosinophils Absolute Auto 0.4 K/mm3 (0-0.3); Eosinophils Percent Auto 6.4 % (0-4.4); Hematocrit 31.2 % (42.0-52.0); Hemoglobin 9.5 g/dL (14.0-18.0); Immature Granulocyte Absolute 0.01 K/mm3 (0.00-0.031); Immature Granulocyte Percent A 0.2 % (0-0.5); Lymphocytes Absolute Auto 1.47 K/mm3 (0.9-3.2); Lymphocytes Percent Auto 26.1 % (18.3-44.2); Mean Corpuscular HGB Conc 30.4 g/dl (32-36); Mean Corpuscular Hemoglobin 29.9 pg (26-34); Mean Corpuscular Volume 98.1 fl (80-100); Monocytes Absolute Auto 0.6 K/mm3 (0.1-0.6); Monocytes Percent Auto 9.9 % (2.6-8.5); Neutrophils Absolute Auto 3.2 K/mm3 (1.3-6.7); Neutrophils Percent Auto 56.2 % (45.5-73.1); Platelet Count Result 166 k/mm3 (150-375); Red Blood Count 3.18 M/mm3 (4.6-6.20); Red Cell Distribution Width 17.5 % (11.5-14.5); White Blood Count 5.6 K/mm3 (4.5-10.0)
[2023-10-01 16:44] LABS: Alanine Aminotransferase 10 U/L (6-50); Albumin Level 3.8 g/dL (3.5-5.1); Alkaline Phosphatase 67 U/L (38-126); Anion Gap 13 mmol/L (8-16); Aspartate Amino Transferase 17 U/L (17-59); Bilirubin,Total 0.5 mg/dL (0.2-1.3); Blood Urea Nitrogen 110 mg/dL (9-20); Calcium 9.8 mg/dL (8.4-10.2); Carbon Dioxide 25 mmol/L (22-30); Chloride 105 mmol/L (98-107); Glucose 82 mg/dL (65-110); Magnesium 2.7 mg/dL (1.6-2.3); Potassium 6.5 mmol/L (3.4-5.0); Sodium 143 mmol/L (137-145)
[2023-10-01] MEDS: ALBUTEROL SULFATE NEB 2.5 MG/3 ML INH 10 MG INHALATION (16:55)
[2023-10-01] MEDS: IPRATROPIUM BR 0.02% INH SOLN 0.5 MG/2.5 ML VIAL 2 MG INHALATION (16:57)
[2023-10-01 17:04] LABS: Estimated CRCL calculation 4 ml/min; Estimated Glomerular Filt Rate 3
[2023-10-01] MEDS: INSULIN HUMAN REGULAR (*BKC) 100 UNITS/ML 10 UNITS IV PUSH (18:06)
[2023-10-01] MEDS: DEXTROSE 50% 25 GM/50 ML SYRINGE IV PUSH (18:07)
[2023-10-01] MEDS: SODIUM ZIRCONIUM CYCLOSILICATE 10 GM POWD.PACK PO (18:08)
[2023-10-01] MEDS: CALCIUM GLUCONATE 1,000 MG/10 ML VIAL 1000 MG IV PUSH (18:08)
--- NOTE | 2023-10-01 18:28 | PC.NURSE ---
when going into room to give medications, dextrose was not pushing properly. when trying adjust the IV site pt yells get the hell off of me instructed pt that this RN is just adjusting IV so it will flow properly to give medications. pt states that IV aint no good anyhow IV is patent with good blood return. no infiltration noted. IV flushing without difficulty. when attempting to administer the dextrose for the 2nd time pt yelling just quit it! educated pt that it is important for him to receive medications to lower his potassium levels. pt states, You don't listen! asked pt if he would like to receive the rest of the medications or if he would like me to stop. pt reports, well you started them already, might as well finish them. administered the rest of the medications. pt still refusing breathing treatments. LISA Robles made aware.
--- NOTE | 2023-10-01 19:33 | PC.NURSE ---
called report back to [facility].
[2023-10-01 19:36] VITALS: BP 153/75; PULSE 64; RESP 20; O2SAT 100
[2023-10-01 20:15] VITALS: BP 152/74; PULSE 64; RESP 16; O2SAT 100
== END 2023-10-01 20:49 ==
PROVIDERS: Emergency Medicine; Emergency Provider Physician Assistant
DX: E87.5 Hyperkalemia (principal); N18.6 End stage renal disease; E11.22 Type 2 diabetes mellitus with diabetic chronic kidney disease; I12.0 Hypertensive chronic kidney disease with stage 5 chronic kidney disease or end stage renal disease; Z99.2 Dependence on renal dialysis
CPT/HCPCS: 36415; 80053; 83735; 85025; 93005; 94640; 96374; 96375; 99284; A9270; J0612; J1815

== ENCOUNTER 2023-11-09 21:40 | Observation (INO) | payer MEDICARE, MEDICAID, SELFPAY ==
--- NOTE | ~2023-11-09 | XR_ITS ---
Portable chest x-ray Comparison: 09/23/2023 Clinical History: Renal failure, missed dialysis Findings: Numerous calcified pulmonary granulomas are present. No other consolidation or pleural eff usion. Cardiomediastinal silhouette is stable. Bones and soft tissues are unremarkable. Impression: No acute pulmonary abnormalities. Stable cardiomegaly. Prior granulomatous disease. Reviewed, dictated and finalized at location . Impression: No acute pulmonary abnormalities. Stable cardiomegaly. Prior granulomatous disease.
--- NOTE | 2023-11-09 21:42 | ECG_ITS ---
Measurements Intervals [place] Rate: 59 P: 38 [place]: 205 QRS: -21 QRSD: 171 T: 1 QT: 493 QTc: 491 Interpretive Statements SINUS BRADYCARDIA VENTRICULAR PREMATURE COMPLEXES BORDERLINE AV CONDUCTION DELAY RIGHT BUNDLE BRANCH BLOCK BASELINE ARTIFACT- I, III, V2 ABNORMAL ECG COMPARED TO ECG 10/01/2023 14:45:06 NO SIGNIFICANT CHANGES Electronically Signed On 11-10-2023 6:25:36 CDT by Imer Scanlon D.O.
[2023-11-09 22:04] VITALS: BP 149/71; PULSE 57; RESP 15; TEMP 36.3; O2SAT 94
[2023-11-09 22:20] LABS: Basophils Absolute Auto 0.1 K/mm3 (0.0-0.1); Basophils Percent Auto 0.9 % (0.2-1.2); Eosinophils Absolute Auto 0.3 K/mm3 (0-0.3); Eosinophils Percent Auto 4.6 % (0-4.4); Hemoglobin 9.9 g/dL (14.0-18.0); Immature Granulocyte Absolute 0.01 K/mm3 (0.00-0.031); Immature Granulocyte Percent A 0.2 % (0-0.5); Lymphocytes Absolute Auto 1.11 K/mm3 (0.9-3.2); Lymphocytes Percent Auto 20.3 % (18.3-44.2); Mean Corpuscular HGB Conc 30.9 g/dl (32-36); Mean Corpuscular Hemoglobin 30.8 pg (26-34); Mean Corpuscular Volume 99.7 fl (80-100); Mean Platelet Volume 10.9 fl (7.4-10.4); Monocytes Absolute Auto 0.7 K/mm3 (0.1-0.6); Neutrophils Absolute Auto 3.4 K/mm3 (1.3-6.7); Platelet Count Result 159 k/mm3 (150-375); Red Blood Count 3.21 M/mm3 (4.6-6.20); Red Cell Distribution Width 18.1 % (11.5-14.5); White Blood Count 5.5 K/mm3 (4.5-10.0)
[2023-11-09 22:40] LABS: Alanine Aminotransferase 10 U/L (6-50); Albumin Level 3.8 g/dL (3.5-5.1); Alkaline Phosphatase 66 U/L (38-126); Anion Gap 12 mmol/L (8-16); Aspartate Amino Transferase 16 U/L (17-59); Bilirubin,Total 0.4 mg/dL (0.2-1.3); Blood Urea Nitrogen 90 mg/dL (9-20); Carbon Dioxide 26 mmol/L (22-30); Chloride 101 mmol/L (98-107); Estimated Glomerular Filt Rate 4; Glucose 102 mg/dL (65-110); Potassium 6.8 mmol/L (3.4-5.0); Sodium 139 mmol/L (137-145)
[2023-11-09 23:11] VITALS: BP 142/76; PULSE 66; RESP 12; O2SAT 94
--- NOTE | 2023-11-09 23:16 | ED.GENADULT ---
HPI - General Adult General Chief complaint: Recheck/Abnormal Lab/Rx Stated complaint: refused dialysis, K 6.8 Time Seen by Provider: 11/09/23 23:00 History of Present Illness HPI narrative: Patient is a 73-year-old gentleman with history of end-stage renal disease on HD the patient has states that he did not feel well this week and decided to not go to dialysis for a week the patient states that at times he just needs a break from the dialysis and then he can come to the hospital in the fixes potassium the patient states the [facility] today labs on him and told him that he had to go to the hospital today the patient denies shortness of breath denies chest pain Related Data Home Medications Medication Instructions Recorded Confirmed acetaminophen 650 mg PO DAILY PRN Pain 09/21/23 09/21/23 cholecalciferol (vitamin D3) 1,250 1,250 mcg PO WEEKLY 09/21/23 09/21/23 mcg (50,000 unit) capsule clotrimazole-betamethasone 1 applic topical BID 09/21/23 09/21/23 dextromethorphan-guaifenesin 10 ml PO Q6-8H PRN Cough 09/21/23 09/21/23 diclofenac sodium 1 % topical gel See Rx Instructions .Route 09/21/23 09/21/23 (Arthritis Pain (diclofenac)) .COMPLEX PRN Pain loperamide 2 mg PO Q6-8H 09/21/23 09/21/23 montelukast 10 mg tablet 10 mg PO DAILY 09/21/23 09/21/23 sevelamer carbonate 1,600 mg PO TIDWM 09/21/23 09/21/23 Allergies Allergy/AdvReac Type Severity Reaction Status Date / Time azithromycin Allergy Unknown Verified 11/09/23 23:13 Penicillins Allergy Unknown Verified 11/09/23 23:13 Review of Systems Review of Systems: A 10 system review of systems was completed on the patient and is negative except for what is stated in the HPI. Nursing and ancillary documentation was reviewed. [facility] Past Medical History Medical History Diabetes ESRD (end stage renal disease) Hypertension Social History Social History Smoking status: Never smoker Alcohol intake: never Substance use: never Do You Feel Safe in your Home?: Yes Lack of Transportation: No Lack of Food: Never True Current Housing: I Have Housing Concerned About Future Housing: No Difficulty Paying Gas/Electric Bills: No Difficulty Paying for Meds: No Currently Unemployed: No Education: Don't Know Difficulty w/ Childcare or Family Care: No Spiritual care concerns: No Exam Narrative: GENERAL: Well-appearing, well-nourished, and in no acute distress. HEAD: Normocephalic, atraumatic. EYES: PERRLA and EOMI. ENT: Nares clear, no rhinorrhea or epistaxis. Mucous membranes moist. NECK: Supple. CHEST: Clear to auscultation. No respiratory distress. HEART: Regular rate and rhythm. No murmur heard. Normal peripheral pulses. ABDOMEN: Soft, nontender, nondistended, normal active bowel sounds. EXTREMITIES: Normal range of motion. No edema. SKIN: Warm, dry, no rash. NEURO: No focal deficits. Alert and oriented x3. PSYCH: Normal mood and affect. Course Vital Signs Vital signs: Vital Signs Temperature 36.3 C L 11/09/23 22:04 Pulse Rate 57 L 11/09/23 22:04 Respiratory Rate 15 11/09/23 22:04 Blood Pressure 149/71 H 11/09/23 22:04 Pulse Oximetry 94 11/09/23 22:04 Oxygen Delivery Room Air 11/09/23 22:04 Temperature 36.3 C L 11/09/23 22:04 Pulse Rate 71 11/10/23 01:16 Respiratory Rate 17 11/10/23 01:16 Blood Pressure 154/80 H 11/10/23 01:16 Pulse Oximetry 96 11/10/23 01:16 Oxygen Delivery Room Air 11/09/23 22:04 Medical Decision Making MDM Narrative Medical decision making narrative: Differential diagnosis includes noncompliance, end-stage renal disease, electrolyte abnormality, The patient was counseled as to his end-stage renal disease. It was discussed with the patient whether he wished to continue treatments or whether he wished comfort/palliative measures. The nico
[2023-11-10] VITALS (31 sets, daily range): BP systolic 104–160; BP diastolic 49–87; PULSE 54–87; RESP 13–24; TEMP 36.1–37; O2SAT 91–97; BMI 41.5
--- NOTE | 2023-11-10 01:15 | PC.NURSE ---
4 nurses attempted IV draw. ICU and LISA Robles unable to use US at this time. water plant pump operator supervisor contacted.
--- NOTE | 2023-11-10 01:30 | PC.NURSE ---
5 nurses (Bonnie Cifuentes Abby, Madison, & Paradise), & Display Fabrication Supervisor (Tabatha) attempted IV access. Pt is currently refusing any more attempts at this time. EDP aware.
[2023-11-10] MEDS: SODIUM ZIRCONIUM CYCLOSILICATE 10 GM POWD.PACK PO (01:41)
--- NOTE | 2023-11-10 06:03 | PC.NURSE ---
Pt daily weight : 151.7kg
--- NOTE | 2023-11-10 07:23 | PC.NURSE ---
Bedside report from arnav Cifuentes refusing IV access at this time
[2023-11-10 07:24] LABS: Basophils Absolute Auto 0.1 K/mm3 (0.0-0.1); Basophils Percent Auto 1.6 % (0.2-1.2); Eosinophils Absolute Auto 0.4 K/mm3 (0-0.3); Eosinophils Percent Auto 5.3 % (0-4.4); Hematocrit 34.1 % (42.0-52.0); Hemoglobin 10.3 g/dL (14.0-18.0); Immature Granulocyte Absolute 0.01 K/mm3 (0.00-0.031); Immature Granulocyte Percent A 0.1 % (0-0.5); Lymphocytes Absolute Auto 1.91 K/mm3 (0.9-3.2); Lymphocytes Percent Auto 27.6 % (18.3-44.2); Mean Corpuscular HGB Conc 30.2 g/dl (32-36); Mean Corpuscular Hemoglobin 30.7 pg (26-34); Mean Corpuscular Volume 101.8 fl (80-100); Monocytes Absolute Auto 0.8 K/mm3 (0.1-0.6); Neutrophils Absolute Auto 3.8 K/mm3 (1.3-6.7); Neutrophils Percent Auto 54.4 % (45.5-73.1); Platelet Count Result 150 k/mm3 (150-375); Red Blood Count 3.35 M/mm3 (4.6-6.20); Red Cell Distribution Width 17.8 % (11.5-14.5); White Blood Count 6.9 K/mm3 (4.5-10.0)
[2023-11-10 07:36] LABS: Alanine Aminotransferase 11 U/L (6-50); Albumin Level 3.8 g/dL (3.5-5.1); Alkaline Phosphatase 71 U/L (38-126); Anion Gap 13 mmol/L (8-16); Aspartate Amino Transferase 16 U/L (17-59); Bilirubin,Total 0.4 mg/dL (0.2-1.3); Blood Urea Nitrogen 89 mg/dL (9-20); Carbon Dioxide 26 mmol/L (22-30); Chloride 103 mmol/L (98-107); Estimated Glomerular Filt Rate 4; Glucose 108 mg/dL (65-110); Potassium 6.6 mmol/L (3.4-5.0); Sodium 142 mmol/L (137-145)
[2023-11-10 07:39] LABS: Phosphorus 11.6 mg/dL (2.5-4.5)
--- NOTE | 2023-11-10 07:58 | PC.NURSE ---
repositioned patient and as i was attempting to place O2 back on pt he grabs my arm and then puts his fist up and tells me to shut up . I tell the pt to please dont touch me or threaten me and he states well you need to shut up and listen
--- NOTE | 2023-11-10 08:01 | PC.NURSE ---
Renal Breakfast tray ordered
[2023-11-10 08:18] LABS: Hepatitis B Surface Antigen Negative (Negative)
--- NOTE | 2023-11-10 08:20 | PC.NURSE ---
Pt taken to Dialysis at this time
[2023-11-10 08:36] LABS: Hepatitis B Surface Anti Res Positive
--- NOTE | 2023-11-10 09:35 | PM.CNNEP ---
Assessment and Plan Assessment and plan (1) End stage renal disease: Code(s): N18.6 - End stage renal disease Status: Chronic Assessment and Plan: HD today plan HD tomorrow to resume Thu/Thu/Thursday dialysis schedule follow electrolytes, volume status, and clearance (2) Hyperkalemia: Code(s): E87.5 - Hyperkalemia Status: Acute Assessment and Plan: presumably precipitated by missed dialysis treatments over the last week s/p medical management further correction with dialysis follow trend repeat K+ levels (3) Hypertension: Code(s): I10 - Essential (primary) hypertension Status: Chronic Assessment and Plan: reasonable control at time resume home medications follow trend of hemodynamics (4) Anemia: Code(s): D64.9 - Anemia, unspecified Status: Chronic Assessment and Plan: due to ESRD Epogen with HD follow trend of H/H (5) Diabetes: Code(s): E11.9 - Type 2 diabetes mellitus without complications Status: Chronic Assessment and Plan: follow accu-cheks glycemic control per hospitalists I will continue follow patient with you while he remains hospitalized make further recommendations as needed. Thank you for allowing me to participate in care of this patient. History of Present Illness Reason for Consult Consult date: 11/10/23 Reason for consult: end stage renal disease Chief Complaint Chief complaint: ESRD on HD,Hyperkalemia History of Present Illness Narrative: The patient is a 73-year-old male with a past medical history as outlined below who presented to [facility] Emergency Room due to abnormal labs. The patient apparently missed approximately a week of dialysis because he stated that he felt reasonably well. However, his nursing facility did outpatient labs that demonstrated significant hyperkalemia. He was subsequently transferred to the emergency room for further assessment Workup and evaluation emergency room demonstrated the patient be hemodynamically stable and in no apparent distress. Repeat labs confirmed his hyperkalemia as well as his elevated BUN and creatinine due the fact that he had not received dialysis for the last week. He otherwise appeared in no apparent distress and felt reasonably well. However, given his significant hyperkalemia he was admitted to hospital for her urgent dialysis and stabilization of this abnormality. Renal consultation was requested due to his end-stage renal disease. The patient normally dialyzes on a Thursday, Thursday, Thursday dialysis schedule as [facility] under the care of Dr. Campbell. Prior to his previous hospitalization and subsequent placement at his rehabilitation/nursing facility, he was receiving dialysis at the [facility]. He is currently receiving dialysis at the time of my dictation and seems to be tolerating it fairly well (seen on HD at 9:25 a.m.) Review of Systems Review of Systems: As per HPI. [facility] Past Medical History Medical History Diabetes ESRD (end stage renal disease) Hypertension Missed dialysis Personal history of noncompliance with medical treatment and regimen Social History Social History Smoking packs per day: 1.5 Smoking cigarettes per day: 30.0 Years smoked: 10 Smoking pack-years: 15.00 Smoking status: Former smoker Tobacco type: cigarettes Alcohol intake: never Substance use: never Do You Feel Safe in your Home?: Yes Lack of Transportation: No Lack of Food: Never True Current Housing: I Have Housing Concerned About Future Housing: No Difficulty Paying Gas/Electric Bills: No Difficulty Paying for Meds: No Currently Unemployed: No Education: Decline to Answer Difficulty w/ Childcare or Family Care: No Spiritual care concern
[2023-11-10] MEDS: ALBUTEROL SULFATE NEB 2.5 MG/3 ML INH 5 MG INHALATION (09:36)
[2023-11-10] MEDS: EPOETIN ALFA-EPBX 10,000 UNITS/ML VIAL 10000 UNITS IV PUSH (10:53)
--- NOTE | 2023-11-10 13:30 | PC.NURSE ---
Pt brought to room 232 from dialysis. Alert and oriented. Vitals stable. This RN is assuming care
[2023-11-10 14:21] LABS: Anion Gap 8 mmol/L (8-16); Blood Urea Nitrogen 52 mg/dL (9-20); Calcium 8.5 mg/dL (8.4-10.2); Carbon Dioxide 31 mmol/L (22-30); Chloride 101 mmol/L (98-107); Estimated CRCL calculation 11 ml/min; Estimated Glomerular Filt Rate 7; Glucose 84 mg/dL (65-110); Potassium 4.7 mmol/L (3.4-5.0); Sodium 140 mmol/L (137-145)
[2023-11-10 16:34] LABS: MRSA (PCR) NOT DETECTED (NOT DETECTE)
--- NOTE | 2023-11-10 16:54 | PM.IMHP ---
H&P: HPI History of Present Illness Date/Time: 11/10/23 16:54 Chief Complaint: 1. Abnormal labs, Hyperkalemia 2. Missed HD sessions, 3 Narrative: Justin Mustafa is a 73-year-old male with PMH of ESRD, diabetes, HTN who presents to the ED? via EMS from a [place] alf with chief complaint of apparent elevated potassium levels.? He has missed his last 3 dialysis appointments, citing that he does not need them due to his stable symptom profile; during a routine outpatient metabolic panel, his potassium was found to be elevated, 6.5. He denies chest pain, dizziness, nausea, vomiting, chills or rigors; He was advised to pursue an ED visit, by Ex-. He does smoke cigarettes daily (1-1.5ppd), denies alcohol or recreational/illicit drug use; his family Hx is not contributory. Work-up findings: K 6.8 >> 6.6 >> 4.7 ECG: Sinus bradycardia, 59. Ventricular PVCs; RBBB; No significant changes when compared to ECG on 10/01/23 BUN 90 Cr 12 GFR 4 Hb 9.9 WBC 5.5 PLT 159 CXR: No acute pulmonary abnormalities. He was administered Kayexalate, Albuterol Rx with improved K levels; He will be admitted, evaluated and managed for hyperkalemia. Review of Systems Constitutional: Constitutional: Reports fatigue and Reports lethargy Eyes: Eyes: Reports no additional eye complaints ENT: Reports system reviewed and no additional complaints, except as documented Cardiovascular: Cardiovascular: Reports no additional cardiovascular complaints Respiratory: Respiratory: Reports no additional respiratory complaints Gastrointestinal: Gastrointestinal: Reports no additional gastrointestinal complaints Genitourinary: Genitourinary: Reports no additional male genitourinary complaints Musculoskeletal: Musculoskeletal: Reports no additional musculoskeletal complaints Integumentary/Breasts: Skin/Breast: Reports system reviewed and no additional complaints, except as docu Neurologic: Reports system reviewed and no additional complaints, except as documented PMFSH Past Medical History Medical History (Updated 11/10/23 @ 17:07 by Juan J Felder MD) Diabetes ESRD (end stage renal disease) Hypertension Missed dialysis Social History Social History Smoking packs per day: 1.5 Smoking cigarettes per day: 30.0 Years smoked: 10 Smoking pack-years: 15.00 Smoking status: Former smoker Tobacco type: cigarettes Alcohol intake: never Substance use: never Do You Feel Safe in your Home?: Yes Lack of Transportation: No Lack of Food: Never True Current Housing: I Have Housing Concerned About Future Housing: No Difficulty Paying Gas/Electric Bills: No Difficulty Paying for Meds: No Currently Unemployed: No Education: Decline to Answer Difficulty w/ Childcare or Family Care: No Spiritual care concerns: No Meds Home Medications and Allergies Home Medications Medication Instructions Recorded Confirmed Type acetaminophen 650 mg PO DAILY PRN Pain 09/21/23 11/10/23 History cholecalciferol (vitamin D3) 1,250 1,250 mcg PO WEEKLY 09/21/23 11/10/23 History mcg (50,000 unit) capsule clotrimazole-betamethasone 1 applic topical BID 09/21/23 11/10/23 History dextromethorphan-guaifenesin 10 ml PO Q6-8H PRN Cough 09/21/23 11/10/23 History diclofenac sodium 1 % topical gel See Rx Instructions .Route 09/21/23 11/10/23 History (Arthritis Pain (diclofenac)) .COMPLEX PRN Pain loperamide 2 mg PO Q6-8H 09/21/23 11/10/23 History montelukast 10 mg tablet 10 mg PO DAILY 09/21/23 11/10/23 History sevelamer carbonate 1,600 mg PO TIDWM 09/21/23 11/10/23 History doxycycline hyclate 100 mg tablet 100 mg PO Q12HR #7 tabs 09/24/23 11/10/23 Rx Allergies Allergy/AdvReac Type Severity Reaction Status Date / Time azithromycin Allergy Unknown Verified 11/09/23 23:13 Penicillins Allergy Unknown Verified 11/09/23 23:13 Vital Signs Vital Signs - 24 hr 11/08
[2023-11-10 19:52] LABS: Alveolar/Arterial O2 Gradient 48.3 mmHg; Base Excess ABG 0.7 mEq/l (+/-2.0); Fractional Inspired Oxygen 29 %; HCO3 ABG 28.3 mEq/l (22.0-26.0); Oxygen Content ABG 13.9 %vol (16.0-22.0); Oxygen Saturation ABG 94.7 % (95.0-100.0); Oxyhemoglobin 93.6 % THb (90.0-100.0); PO2 ABG 83.2 mmHg (80.0-100.0); PO2 FiO2 Ratio Arterial Blood 2.92 %; Total Hemoglobin 10.5 g/dL (12.0-18.0)
[2023-11-10 19:55] LABS: PCO2 ABG 60.8 mmHg (35.0-45.0); Site Drawn RIGHT RADIAL; pH ABG 7.285 (7.350-7.450)
[2023-11-10 19:56] LABS: Device NASAL CANNULA; Liters per Minute 2.5 LPM; Modified Allen's Test Pass
[2023-11-10 22:20] LABS: Alveolar/Arterial O2 Gradient 148.6 mmHg; Base Excess ABG 0.7 mEq/l (+/-2.0); Carboxyhemoglobin 0.1 % THb (0-2.0); Fractional Inspired Oxygen 40 %; HCO3 ABG 27.1 mEq/l (22.0-26.0); Methemoglobin ABG 0.5 %THb (0-1.5); Oxygen Content ABG 13.8 %vol (16.0-22.0); Oxygen Saturation ABG 94.3 % (95.0-100.0); PCO2 ABG 52.2 mmHg (35.0-45.0); PO2 ABG 76.6 mmHg (80.0-100.0); PO2 FiO2 Ratio Arterial Blood 1.91 %; Reduced Hemoglobin 6.4 %THb (0-5.0); Total Hemoglobin 10.5 g/dL (12.0-18.0); pH ABG 7.333 (7.350-7.450)
[2023-11-10 22:21] LABS: Device NON-INVASIVE VENT; Modified Allen's Test Pass; Site Drawn RIGHT RADIAL
[2023-11-10 22:22] LABS: Non-Invasive Expiratory Pressure 6 CMH2O; Non-Invasive Inspiratory Pressure 14 CMH2O; Non-Invasive Vent Rate 20 /MIN
[2023-11-11] VITALS (17 sets, daily range): BP systolic 116–154; BP diastolic 50–77; PULSE 58–72; RESP 19–22; TEMP 36.4–37.2; O2SAT 93–97
[2023-11-11 07:55] LABS: Basophils Absolute Auto 0.1 K/mm3 (0.0-0.1); Basophils Percent Auto 1.2 % (0.2-1.2); Eosinophils Absolute Auto 0.3 K/mm3 (0-0.3); Eosinophils Percent Auto 4.4 % (0-4.4); Hematocrit 32.9 % (42.0-52.0); Hemoglobin 9.8 g/dL (14.0-18.0); Immature Granulocyte Absolute 0.02 K/mm3 (0.00-0.031); Immature Granulocyte Percent A 0.3 % (0-0.5); Lymphocytes Absolute Auto 1.35 K/mm3 (0.9-3.2); Lymphocytes Percent Auto 22.8 % (18.3-44.2); Mean Corpuscular HGB Conc 29.8 g/dl (32-36); Mean Corpuscular Hemoglobin 30.3 pg (26-34); Mean Corpuscular Volume 101.9 fl (80-100); Mean Platelet Volume 11.1 fl (7.4-10.4); Monocytes Absolute Auto 0.8 K/mm3 (0.1-0.6); Monocytes Percent Auto 12.8 % (2.6-8.5); Neutrophils Absolute Auto 3.5 K/mm3 (1.3-6.7); Neutrophils Percent Auto 58.5 % (45.5-73.1); Platelet Count Result 142 k/mm3 (150-375); Red Blood Count 3.23 M/mm3 (4.6-6.20); Red Cell Distribution Width 17.9 % (11.5-14.5); White Blood Count 5.9 K/mm3 (4.5-10.0)
[2023-11-11 08:14] LABS: Hypochromasia 2+; Ovalocytes 2+; Platelet Estimate Slightly Decreased (Adequate); Schistocytes None Seen
[2023-11-11 08:19] LABS: Alanine Aminotransferase 9 U/L (6-50); Albumin Level 3.5 g/dL (3.5-5.1); Alkaline Phosphatase 68 U/L (38-126); Anion Gap 9 mmol/L (8-16); Aspartate Amino Transferase 15 U/L (17-59); Bilirubin,Total 0.4 mg/dL (0.2-1.3); Blood Urea Nitrogen 55 mg/dL (9-20); Calcium 8.9 mg/dL (8.4-10.2); Carbon Dioxide 30 mmol/L (22-30); Chloride 101 mmol/L (98-107); Estimated CRCL calculation 9 ml/min; Estimated Glomerular Filt Rate 6; Glucose 83 mg/dL (65-110); Potassium 5.3 mmol/L (3.4-5.0); Sodium 140 mmol/L (137-145)
[2023-11-11] MEDS: ENOXAPARIN 30 MG/0.3 ML SYRINGE SUB-Q (10:05)
--- NOTE | 2023-11-11 13:05 | PM.PNNEP ---
Progress Note: A&P Assessment and Plan (1) End stage renal disease: Code(s): N18.6 - End stage renal disease Status: Chronic Assessment and Plan: HD yesterday HD today resume Thu/Thu/Thursday dialysis schedule today follow electrolytes, volume status, and clearance (2) Hyperkalemia: Code(s): E87.5 - Hyperkalemia Status: Acute Assessment and Plan: resolving presumably precipitated by missed dialysis treatments last week s/p medical management further correction achieved with dialysis (3) Hypertension: Code(s): I10 - Essential (primary) hypertension Status: Chronic Assessment and Plan: reasonable control at time follow trend of hemodynamics (4) Anemia: Code(s): D64.9 - Anemia, unspecified Status: Chronic Assessment and Plan: due to ESRD Epogen with HD follow trend of H/H (5) Diabetes: Code(s): E11.9 - Type 2 diabetes mellitus without complications Status: Chronic Assessment and Plan: follow accu-cheks glycemic control per hospitalists Will continue to follow. Subjective Date/time seen: 11/11/23 13:05 Interval history: Follow-up for end stage renal disease on hemodialysis. Tolerating dialysis treatment at the time of my visit (seen on HD at 12:55PM); tolerated dialysis treatment yesterday without any issues or problems; no apparent distress noted; no issues/events overnight or earlier this morning. Exam Narrative: General: elderly but WD/WN male in NAD Heart: normal S1 and S2; no rub Lungs: clear anteriorly Abdomen: soft, nontender, nondistended, positive bowel sounds Extremities: no cyanosis or clubbing; no edema Skin: warm and dry Objective Data Vital Signs Vital Signs: Vital Signs Temp Pulse Resp BP Pulse Ox O2 Del Method O2 Flow Rate 11/11/23 13:00 64 148/72 H 11/11/23 12:35 97.5 F L 63 22 H 149/67 H 93 11/11/23 12:35 2 11/11/23 12:45 65 143/73 H 11/11/23 11:38 97.6 F 69 20 142/77 H 96 11/11/23 08:00 95 Room Air 11/11/23 08:00 69 11/11/23 08:46 95 BiPAP 11/11/23 08:38 21 H 94 BiPAP 11/11/23 07:41 97.7 F 69 19 116/73 96 11/11/23 06:00 66 11/11/23 04:00 72 20 97 Nasal Cannula 4 11/11/23 01:00 97 Nasal Cannula 4 11/11/23 05:08 97.6 F 72 20 138/58 L 97 11/11/23 04:00 68 11/11/23 02:00 69 11/10/23 22:30 20 95 BiPAP 11/11/23 00:00 58 L 20 95 BiPAP 11/10/23 22:00 66 11/10/23 20:00 58 L 20 95 BiPAP 11/10/23 20:00 60 11/11/23 00:00 98.3 F 58 L 20 130/50 L 95 11/10/23 20:21 98.0 F 63 22 H 127/49 L 91 11/10/23 20:00 58 L 21 H 94 BiPAP Intake/Output Intake/Output: Intake & Output 11/08/23 11/09/23 11/10/23 11/11/23 23:59 23:59 23:59 23:59 Intake Total 720 360 Output Total 2000 0 Balance -1280 360 Meds/Results Medications: Active Medications Generic Name Dose Route Start Last Admin Trade Name Freq PRN Reason Stop Dose Admin Acetaminophen 650 mg 11/10/23 17:03 Acetaminophen 325 Mg Tablet PO Q4H PRN Mild Pain (1-3) or Fever Enoxaparin Sodium 30 mg 11/11/23 09:00 11/11/23 10:05 Enoxaparin 30 Mg/0.3 Ml Syringe SUB-Q 30 mg DAILY TARA Administration Epoetin Robbie-epbx 4,000 units 11/11/23 20:00 Epoetin Robbie-Epbx 4,000 Units/Ml Vial IV PUSH 11/11/23 20:01 ONCE ONE Albumin Human 50 mls @ 999 mls/hr 11/10/23 05:40 Albutein IVPB 12/10/23 05:39 Q10M PRN HYPOTENSION Radiology Results: ITS Impressions Chest X-Ray 11/10/23 07:30 Impression: No acute pulmonary abnormalities. Stable cardiomegaly. Prior granulomatous disease. Labs Labs: Laboratory Tests 11/11/23 07:38 11/11/23 07:38 Calcium 8.9 Total Bilirubin 0.4 AST 15 L ALT 9 Alkaline Phosphatase 68 Total Pr
--- NOTE | 2023-11-11 13:30 | P.PNCROSS_ITS ---
Event Note Event Note Event Note: While on dialysis, patient apparently jumped in bed which resulted in signif icant venous infiltration of his dialysis arm access. Dialysis treatment discontinued and nursing informed to apply ice to affected area. Patient did receive a full dialysis treatment yesterday; K+ mildly elevated on AM blood tests. Patient is requesting discharge -- recommend continued ice application to dialysis arm access due to inflitration and give a dose of lokelma today. Ok for discharge from renal perspective with tentative plan for patient to go to his outpatient dialysis center on Thursday for his scheduled dialysis treatment.
--- NOTE | 2023-11-11 14:41 | PM.DS ---
DS: Admitting Diagnosis Discharge Date 11/11/2023: Admitting Diagnosis (1) Hyperkalemia: ?Code(s): E87.5 - Hyperkalemia ?Status:?Acute ?Assessment and Plan: Acute, severe. Improved Nephrology on board; missed HD sessions Planned HD Monitor K (2) Missed dialysis: ?Status:?Acute ?Assessment and Plan: Counseling and further education (3) Anemia: ?Code(s): D64.9 - Anemia, unspecified ?Status:?Chronic ?Assessment and Plan: Monitor; Hb goal >7 (4) End stage renal disease: ?Code(s): N18.6 - End stage renal disease ?Status:?Chronic ?Assessment and Plan: on HD; residential substance abuse counselor and educate on benefits. (5) Nicotine dependence with current use: ?Code(s): F17.200 - Nicotine dependence, unspecified, uncomplicated ?Status:?Acute DS: Discharge Diagnosis Discharge Diagnosis (1) Nicotine dependence with current use: Code(s): F17.200 - Nicotine dependence, unspecified, uncomplicated Status: Acute (2) Missed dialysis: Status: Acute (3) Anemia: Code(s): D64.9 - Anemia, unspecified Status: Chronic (4) Personal history of noncompliance with medical treatment and regimen: Code(s): Z91.199 - Patient's noncompliance with other medical treatment and regimen due to unspecified reason Status: Acute (5) End stage renal disease: Code(s): N18.6 - End stage renal disease Status: Chronic (6) Fluid overload: Code(s): E87.70 - Fluid overload, unspecified Status: Acute (7) Respiratory failure: Code(s): J96.90 - Respiratory failure, unspecified, unspecified whether with hypoxia or hypercapnia Status: Acute (8) Hyperkalemia: Code(s): E87.5 - Hyperkalemia Status: Acute (9) ESRD (end stage renal disease): Code(s): N18.6 - End stage renal disease Status: Acute (10) Diabetes: Code(s): E11.9 - Type 2 diabetes mellitus without complications Status: Chronic (11) Hypertension: Code(s): I10 - Essential (primary) hypertension Status: Chronic (12) Shortness of breath: Code(s): R06.02 - Shortness of breath Status: Acute DS: Summary Hospital Course Reason for hospitalization: Patient admitted with hyperkalemia secondary to 3 missed hemodialysis sessions Hospital Course: H&P: HPI History of Present Illness Date/Time: 11/10/23? 16:54 Chief Complaint: 1. Abnormal labs, Hyperkalemia 2. Missed HD sessions, 3 Narrative: Justin Mustafa is a 73-year-old male with PMH of ESRD, diabetes, HTN who presents to the ED? via EMS from a [facility] with chief complaint of apparent elevated potassium levels.? He has missed his last 3 dialysis appointments, citing that he does not need them due to his stable symptom profile; during a routine outpatient metabolic panel, his potassium was found to be elevated, 6.5. He denies chest pain, dizziness, nausea, vomiting, chills or rigors; He was advised to pursue an ED visit, by Ex-. He does smoke cigarettes daily (1-1.5ppd), denies alcohol or recreational/illicit drug use; his family Hx is not contributory. Work-up findings: K 6.8 >> 6.6 >> 4.7 ECG: Sinus bradycardia, 59. Ventricular PVCs; RBBB; No significant changes when compared to ECG on 10/01/23 BUN 90 Cr 12 GFR 4 Hb 9.9 WBC 5.5 PLT 159 CXR:?No acute pulmonary abnormalities. He was administered Kayexalate, Albuterol Rx with improved K levels; He will be admitted, evaluated and managed for hyperkalemia. 11/11/2023: Patient underwent emergent hemodialysis yesterday upon admission. His potassium level improved from 6.8 gomez 4.7. This morning his potassium level was borderline high at 5.3. He the scheduled for another hemodialysis session. He was part way through the hemodialysis when he said his hand which infiltrated his hemodialysis access. His hemodialysis session was terminated and he was sent back to floor advising floor nurse to apply ice an
[2023-11-11] MEDS: SODIUM ZIRCONIUM CYCLOSILICATE 5 GM POWD.PACK 15 GM PO (15:07)
== END 2023-11-11 17:09 ==
LOC: ANHED 11-10 01:05 → ANH3MEDSUR 11-10 07:37 → ANHIMU 11-10 11:31
PROVIDERS: Internal Medicine; Internal Medicine Nephrology; Physician Assistant; Admitting Provider Internal Medicine; Emergency Provider Emergency Medicine; PCP Hospitalist; Visit Provider Family Medicine
DX: E87.5 Hyperkalemia (principal); I12.0 Hypertensive chronic kidney disease with stage 5 chronic kidney disease or end stage renal disease; E11.22 Type 2 diabetes mellitus with diabetic chronic kidney disease; N18.6 End stage renal disease; D63.1 Anemia in chronic kidney disease; Z99.2 Dependence on renal dialysis; T81.9XXA Unspecified complication of procedure, initial encounter; Y84.1 Kidney dialysis as the cause of abnormal reaction of the patient, or of later complication, without mention of misadventure at the time of the procedure; Z91.158 Patient's noncompliance with renal dialysis for other reason; E87.70 Fluid overload, unspecified; J96.90 Respiratory failure, unspecified, unspecified whether with hypoxia or hypercapnia; R94.31 Abnormal electrocardiogram [ECG] [EKG]; F17.210 Nicotine dependence, cigarettes, uncomplicated; Z79.1 Long term (current) use of non-steroidal anti-inflammatories (NSAID); Z79.899 Other long term (current) drug therapy
CPT/HCPCS: 36415; 36600; 71045; 80048; 80053; 82375; 82805; 83050; 84100; 85025; 86706; 87340; 87641; 93005; 94002; 94640; 96372; 96374; 99285; A9270; G0257; G0378; J1650; J7030; P9047; Q5105

== ENCOUNTER 2023-11-22 14:23 | Emergency (ER) | payer MEDICARE, MEDICAID, SELFPAY ==
[2023-11-22] VITALS (14 sets, daily range): BP systolic 64–138; BP diastolic 32–96; PULSE 68–85; RESP 22–31; TEMP 36.4; O2SAT 68–98
--- NOTE | ~2023-11-22 | XR_ITS ---
EXAMINATION: XR chest 1V portable DATE: 11/22/2023 14:55 INDICATION: Respiratory distress. TECHNIQUE: A single frontal view of the chest was obtained. COMPARISON: Chest view 11/10/2023, chest CT 09/21/2023 FINDINGS: Calcified pulmonary nodules are consistent with old granulomatous disease. There is an inte rstitial pattern in the lungs, consistent mild pulmonary edema. No pleural effusion or pneumothorax. Cardiomegaly is noted. IMPRESSION: 1. Mild pulmonary edema. 2. Cardiomegaly. Reviewed, dictated and finalized at location E.
--- NOTE | 2023-11-22 14:27 | ECG_ITS ---
Measurements Intervals [place] Rate: 77 P: 63 NH: 206 QRS: -58 QRSD: 175 T: 21 QT: 429 QTc: 487 Interpretive Statements SINUS RHYTHM ATRIAL PREMATURE COMPLEX RIGHT BUNDLE BRANCH BLOCK LEFT ANTERIOR FASCICULAR BLOCK MINIMAL Q WAVES- INFERIOR LEADS BASELINE ARTIFACT- V1-V6 ABNORMAL ECG COMPARED TO ECG 11/09/2023 22:00:15 SINUS RHYTHM NOW PRESENT Electronically Signed On 11-22-2023 19:53:12 CDT by Imer Scanlon D.O.
--- NOTE | 2023-11-22 14:28 | ED.AMS ---
HPI - Altered Mental Status General Chief Complaint: Altered Mental Status Stated Complaint: AMS/Unresposive Time Seen by Provider: 11/22/23 14:28 History of Present Illness HPI narrative: Patient is a 73-year-old male with history of ESRD on hemodialysis, diabetes, hypertension here with altered mental status and hypoxia. His reported last known normal was around 11:00 a.m. this morning and prior to presentation he became more and more lethargic and his O2 saturations were in the low 80s. At that time they placed him on supplemental oxygen and EMS was called. EMS notes he has responded to pain only, normal BG en route, patient provides no history. Facility paperwork notes patient is DNR. Related Data Home Medications Medication Instructions Recorded Confirmed acetaminophen 650 mg PO DAILY PRN Pain 09/21/23 11/10/23 cholecalciferol (vitamin D3) 1,250 1,250 mcg PO WEEKLY 09/21/23 11/10/23 mcg (50,000 unit) capsule clotrimazole-betamethasone 1 applic topical BID 09/21/23 11/10/23 dextromethorphan-guaifenesin 10 ml PO Q6-8H PRN Cough 09/21/23 11/10/23 diclofenac sodium 1 % topical gel See Rx Instructions .Route 09/21/23 11/10/23 (Arthritis Pain (diclofenac)) .COMPLEX PRN Pain loperamide 2 mg PO Q6-8H 09/21/23 11/10/23 montelukast 10 mg tablet 10 mg PO DAILY 09/21/23 11/10/23 sevelamer carbonate 1,600 mg PO TIDWM 09/21/23 11/10/23 Allergies Allergy/AdvReac Type Severity Reaction Status Date / Time azithromycin Allergy Unknown Verified 11/09/23 23:13 Penicillins Allergy Unknown Verified 11/09/23 23:13 Review of Systems Review of Systems: ROS unobtainable: Yes unobtainable due to mental status PMFSH Past Medical History Medical History (Updated 11/22/23 @ 18:29 by Carolin Mcintyre MD) Diabetes ESRD (end stage renal disease) Hypertension Missed dialysis Personal history of noncompliance with medical treatment and regimen Social History Social History Smoking packs per day: 1.5 Smoking cigarettes per day: 30.0 Years smoked: 10 Smoking pack-years: 15.00 Smoking status: Former smoker Tobacco type: cigarettes Alcohol intake: never Substance use: never Do You Feel Safe in your Home?: Yes Lack of Transportation: No Lack of Food: Never True Current Housing: I Have Housing Concerned About Future Housing: No Difficulty Paying Gas/Electric Bills: No Difficulty Paying for Meds: No Currently Unemployed: No Education: Decline to Answer Difficulty w/ Childcare or Family Care: No Spiritual care concerns: No Exam Narrative: GENERAL: ill-appearing HEAD: Normocephalic, atraumatic. EYES: PERRLA and EOMI. ENT: Nares clear. Mucous membranes dry. NECK: Supple. CHEST: Snoring respirations, NRB in place at 15L. Tachypneic HEART: Regular rate and rhythm. Normal peripheral pulses. ABDOMEN: Soft, protuberant obese abdomen EXTREMITIES: No edema. Dialysis access fistula in left upper extremity, good thrill. SKIN: Warm, dry, no rash. NEURO: Moves all 4 extremities with sternal rub, does not awaken and answer questions. Course Course Emergency Course: Patient seen evaluated on EMS arrival, respiratory distress with a non-rebreather in place. Only arousable to sternal rub, does move all 4 extremities with sternal rub. His mucous membranes appear to be very dry. On chart review patient has history of ESRD, diabetes, last admission was for fluid overload after missing 3 rounds of dialysis, hyperkalemia. Paperwork does note that he is DNR, last hospitalization he was full code. Will attempt to contact family regarding goals of care as patient is currently obtunded and may require a supportive airway given he is unable to have BiPAP at this time due to his mental status. Broad mental status workup ordered. Patient will require admission. Spoke with patient's daughter Monika, his DPOA [phone], notes he has had a l
[2023-11-22 15:09] LABS: Basophils Absolute Auto 0.1 K/mm3 (0.0-0.1); Eosinophils Absolute Auto 0.1 K/mm3 (0-0.3); Eosinophils Percent Auto 1.9 % (0-4.4); Hematocrit 38.3 % (42.0-52.0); Hemoglobin 11.2 g/dL (14.0-18.0); Immature Granulocyte Absolute 0.02 K/mm3 (0.00-0.031); Immature Granulocyte Percent A 0.3 % (0-0.5); Lymphocytes Absolute Auto 1.26 K/mm3 (0.9-3.2); Mean Corpuscular HGB Conc 29.2 g/dl (32-36); Mean Corpuscular Hemoglobin 30.9 pg (26-34); Mean Corpuscular Volume 105.5 fl (80-100); Mean Platelet Volume 10.6 fl (7.4-10.4); Monocytes Absolute Auto 0.6 K/mm3 (0.1-0.6); Monocytes Percent Auto 9.4 % (2.6-8.5); Neutrophils Absolute Auto 4.3 K/mm3 (1.3-6.7); Neutrophils Percent Auto 67.4 % (45.5-73.1); Platelet Count Result 195 k/mm3 (150-375); Red Blood Count 3.63 M/mm3 (4.6-6.20); Red Cell Distribution Width 18.9 % (11.5-14.5); White Blood Count 6.3 K/mm3 (4.5-10.0)
[2023-11-22 15:20] LABS: INR 1.2; Prothrombin Time 16.1 Seconds (11.1-14.7)
[2023-11-22 15:21] LABS: Partial Thromboplastin Time 30.4 Seconds (22.3-36.8)
[2023-11-22 15:24] LABS: Ethanol < 10 mg/dL (<10); Lactic Acid Reflex 0.9 mmol/L (0.7-2.0)
[2023-11-22 15:29] LABS: Platelet Estimate Adequate (Adequate)
[2023-11-22 15:30] LABS: Anisocytosis 2+; Hypochromasia 1+; Macrocytosis 1+ (NORMAL); Schistocytes None Seen
[2023-11-22 15:35] LABS: Alanine Aminotransferase 13 U/L (6-50); Albumin Level 3.9 g/dL (3.5-5.1); Alkaline Phosphatase 79 U/L (38-126); Anion Gap 13 mmol/L (4-12); Aspartate Amino Transferase 24 U/L (17-59); Bilirubin,Total 0.5 mg/dL (0.2-1.3); Blood Urea Nitrogen 69 mg/dL (9-20); CRP 1.6 mg/dL (<1.0); Calcium 9.4 mg/dL (8.4-10.2); Carbon Dioxide 30 mmol/L (22-30); Chloride 101 mmol/L (98-107); Estimated CRCL calculation 9 ml/min; Estimated Glomerular Filt Rate 5; Glucose 88 mg/dL (65-110); Magnesium 2.7 mg/dL (1.6-2.3); Potassium 6.2 mmol/L (3.4-5.0); Sodium 144 mmol/L (137-145)
[2023-11-22 15:36] LABS: Alveolar/Arterial O2 Gradient 576.6 mmHg; Base Excess ABG -2.6 mEq/l (+/-2.0); Fractional Inspired Oxygen 100 %; HCO3 ABG 27.8 mEq/l (22.0-26.0); Oxygen Content ABG 13.6 %vol (16.0-22.0); PO2 ABG 56.9 mmHg (80.0-100.0); PO2 FiO2 Ratio Arterial Blood 0.57 %; Total Hemoglobin 12.4 g/dL (12.0-18.0)
[2023-11-22 15:41] LABS: PCO2 ABG 79.5 mmHg (35.0-45.0); pH ABG 7.161 (7.350-7.450)
[2023-11-22 15:42] LABS: Oxyhemoglobin 77.9 % THb (90.0-100.0)
[2023-11-22 15:43] LABS: Device NON-REBREATHER MASK; Modified Allen's Test Pass; Site Drawn RIGHT RADIAL
[2023-11-22 15:43] LABS: Appearance Urine Clear (Clear); Bacteria Urine None Seen /hpf; Bilirubin Urine Negative (Negative); Blood Urine 1+ (Negative); Color Urine Yellow (Yellow); Glucose Urine UA Negative (Negative); Ketones Urine Negative (Negative); Leukocyte Esterase Ur Trace LEU/UL (Negative); Nitrate Urine Negative (Negative); Non Pathogenic Casts 0-2; Protein Urine 3+ mg/dL (Negative); RBC Urine 0-2 /hpf (0-2); Squamous Epithelial Cell Urine None Seen /hpf (Few); Urobilinogen Urine 0.2 mg/dL (<2.0); WBC Urine 0-5 /hpf (0-3); pH Urine 7.5 (5.0-9.0)
[2023-11-22 15:46] LABS: Troponin I 0.123 ng/mL (0.000-0.034)
[2023-11-22 15:51] LABS: Add Urine Microscopic? YES
[2023-11-22 15:55] LABS: Ammonia 21 umol/L (9-30)
[2023-11-22] MEDS: CALCIUM GLUCONATE 1,000 MG/10 ML VIAL 1000 MG IV PUSH (16:01)
[2023-11-22] MEDS: DEXTROSE 50% 25 GM/50 ML SYRINGE IV PUSH (16:01)
[2023-11-22] MEDS: INSULIN HUMAN REGULAR (*BKC) 100 UNITS/ML 10 UNITS IV PUSH (16:02)
[2023-11-22] MEDS: SODIUM CHLORIDE 0.9% IV 500 ML 999 ML IV CONT (16:02)
[2023-11-22] MEDS: SODIUM BICARBONATE 8.4% 50 MEQ/50 ML SYRINGE IV PUSH (16:14)
[2023-11-22 16:23] LABS: Influenza A QL RT-PCR Negative (Negative); Influenza B QL RT-PCR Negative (Negative); RSV RNA, RT-PCR Negative (Negative); SARS-CoV-2 RNA PCR Negative (Negative)
[2023-11-22 16:44] LABS: Free T4 Free Thyroxine Reflex 0.67 ng/dL (0.78-2.19)
[2023-11-22] MEDS: LORazepam INJ (*CRX) 2 MG/ML VIAL 0.5 MG IV PUSH (16:49)
--- NOTE | 2023-11-22 17:06 | PCCCNOTE ---
Called to ED for hospice referral. Pt totally non responsive. Daughter JEANNETTE Charles [phone] request hospice referral. [facility] called and information and order faxed. Awaiting ETA for evaluation.
--- NOTE | 2023-11-22 17:53 | PC.NURSE ---
Vitals at bedside
--- NOTE | 2023-11-22 19:26 | PC.NURSE ---
DAVONR Francois SADLER
--- NOTE | 2023-11-22 19:58 | PC.NURSE ---
this rn assumed care of patient. this rn took patient report from VIKTORIYA Dnag.
== END 2023-11-22 20:35 | disposition hospice, inpatient (51) ==
PROVIDERS: Emergency Provider Student in an Organized Health Care Education/Training Program; PCP Hospitalist
DX: J96.02 Acute respiratory failure with hypercapnia (principal); J96.01 Acute respiratory failure with hypoxia; E87.5 Hyperkalemia; G93.40 Encephalopathy, unspecified; R79.89 Other specified abnormal findings of blood chemistry; I12.0 Hypertensive chronic kidney disease with stage 5 chronic kidney disease or end stage renal disease; E11.22 Type 2 diabetes mellitus with diabetic chronic kidney disease; N18.6 End stage renal disease; Z99.2 Dependence on renal dialysis; Z87.442 Personal history of urinary calculi; Z79.899 Other long term (current) drug therapy; Z20.822 Contact with and (suspected) exposure to COVID-19; I49.1 Atrial premature depolarization; I45.2 Bifascicular block
CPT/HCPCS: 36415; 36600; 71045; 80053; 80307; 81001; 82140; 82805; 83605; 83735; 84439; 84443; 84484; 85025; 85610; 85730; 86140; 87040; 87637; 93005; 96361; 96374; 96375; 99285; J0612; J1815; J2060; J7040

== ENCOUNTER 2023-11-22 20:58 | HOS | payer OTHER, MEDICARE, MEDICAID, SELFPAY ==
--- NOTE | 2023-11-22 22:00 | PC.NURSE ---
Pt at 2114 after arriving to floor at 2044 and this RN was not able to complete the admission.
--- NOTE | 2023-11-23 15:16 | PM.IMHP ---
H&P: HPI History of Present Illness Date/Time: 11/23/23 15:16 Chief Complaint: uncontrolled dyspnea Narrative: 73 y/o male with ESRD has not been regularly attending HD. He presented to ED with dyspnea, altered MS, and hypoxic and hypercarbic respiratory failure. His family opted for comfort measure only with inpatient hospice service. Review of Systems Review of Systems: ROS unobtainable: Yes unobtainable due to medical condition PMFSH Past Medical History Medical History Diabetes ESRD (end stage renal disease) Hypertension Missed dialysis Personal history of noncompliance with medical treatment and regimen Social History Social History Smoking packs per day: 1.5 Smoking cigarettes per day: 30.0 Years smoked: 10 Smoking pack-years: 15.00 Smoking status: Former smoker Tobacco type: cigarettes Alcohol intake: never Substance use: never Do You Feel Safe in your Home?: Yes Lack of Transportation: No Lack of Food: Never True Current Housing: I Have Housing Concerned About Future Housing: No Difficulty Paying Gas/Electric Bills: No Difficulty Paying for Meds: No Currently Unemployed: No Education: Decline to Answer Difficulty w/ Childcare or Family Care: No Spiritual care concerns: No Meds Home Medications and Allergies Home Medications Medication Instructions Recorded Confirmed Type acetaminophen 650 mg PO DAILY PRN Pain 09/21/23 11/10/23 History cholecalciferol (vitamin D3) 1,250 1,250 mcg PO WEEKLY 09/21/23 11/10/23 History mcg (50,000 unit) capsule clotrimazole-betamethasone 1 applic topical BID 09/21/23 11/10/23 History dextromethorphan-guaifenesin 10 ml PO Q6-8H PRN Cough 09/21/23 11/10/23 History diclofenac sodium 1 % topical gel See Rx Instructions .Route 09/21/23 11/10/23 History (Arthritis Pain (diclofenac)) .COMPLEX PRN Pain loperamide 2 mg PO Q6-8H 09/21/23 11/10/23 History montelukast 10 mg tablet 10 mg PO DAILY 09/21/23 11/10/23 History sevelamer carbonate 1,600 mg PO TIDWM 09/21/23 11/10/23 History doxycycline hyclate 100 mg tablet 100 mg PO Q12HR #7 tabs 09/24/23 11/10/23 Rx Allergies Allergy/AdvReac Type Severity Reaction Status Date / Time azithromycin Allergy Unknown Verified 11/09/23 23:13 Penicillins Allergy Unknown Verified 11/09/23 23:13 Exam Narrative: prior to my exam Assessment and Plan Assessment and plan (1) Palliative care encounter: Code(s): Z51.5 - Encounter for palliative care Status: Acute Assessment and Plan: Met inpatient hospice criteria due to requiring continuous IV hydromorphone for control of dyspnea. (2) Respiratory failure: Code(s): J96.90 - Respiratory failure, unspecified, unspecified whether with hypoxia or hypercapnia Status: Acute (3) ESRD (end stage renal disease): Code(s): N18.6 - End stage renal disease Status: Acute (4) Diabetes: Code(s): E11.9 - Type 2 diabetes mellitus without complications Status: Chronic (5) Hypertension: Code(s): I10 - Essential (primary) hypertension Status: Chronic (6) Encephalopathy: Code(s): G93.40 - Encephalopathy, unspecified Status: Acute (7) Missed dialysis: Status: Acute (8) Shortness of breath: Code(s): R06.02 - Shortness of breath Status: Acute (9) Fluid overload: Code(s): E87.70 - Fluid overload, unspecified Status: Acute
--- NOTE | 2023-11-23 15:20 | P.DN_ITS ---
Discharge Summary Date and Time Date of : 11/22/23 Time of : 21:12 Provider Pronounced By: Luca Mcmanus RN Probable Cause of Probable Cause of : Respiratory failure due to fluid overload due to end-stage renal disease Summary Hospital Course: Admitted to inpatient hospice service for symptom management. Medication was tritrated to comfort. Mr. Brown peacefully. Additional Data Confirmation of as documented by pronouncing clinician: Pupillary Reflex, Palpable Pulses, Response to Stimuli, Heart Tones and Breath Sounds Name of Provider Notified: Dr. Garcia Time Provider Notified: 21:27 Provider Requests Autopsy: No Family Requests Autopsy: No Principal System Software Engineer Notified: Yes Date [facility] Notified of : 11/22/23 Time [facility] Notified of : 21:50
== END 2023-11-22 21:12 | disposition expired | DRG 951 ==
PROVIDERS: Admitting Provider Internal Medicine; PCP Hospitalist; Visit Provider Internal Medicine
DX: Z51.5 Encounter for palliative care (principal); N18.6 End stage renal disease; G93.41 Metabolic encephalopathy; I12.0 Hypertensive chronic kidney disease with stage 5 chronic kidney disease or end stage renal disease; J96.11 Chronic respiratory failure with hypoxia; J96.12 Chronic respiratory failure with hypercapnia; E11.22 Type 2 diabetes mellitus with diabetic chronic kidney disease
CPT/HCPCS: J0153